=== PATIENT | female | born 1965 | race Caucasian/White ===

== ENCOUNTER 2019-06-20 09:35 | Outpatient (CLI) | payer BC, SELFPAY ==
--- NOTE | ~2019-06-20 | XR_ITS ---
XR abdomen/kub 1V DATE: 06/20/2019 10:00 INDICATION: Gross hematuria TECHNIQUE: AP projection, 2 views COMPARISON: 06/20/2019 CT abdomen pelvis examination; only the noncontrast portion of the examination is available at this time FINDINGS: Surgical clips, right upper quadrant, consistent with cholecystectomy. The psoas shadows are intact. No visceromegaly is evident. No significant abnormal calcification is n oted. No apparent urinary tract calcification. There is a moderate amount of fecal material in the rectum and colon. No bowel obstruction is evident . Mild rotatory levoscoliosis of the lumbar spine. IMPRESSION: Status post cholecystectomy Moderate amount of fecal material in the rectum and colon; no bowel obstruction. Reviewed, dictated and finalized at [facility]. Reviewed, dictated and finalized at location B. IMPRESSION: Status post cholecystectomy Moderate amount of fecal material in the rectum and colon; no bowel obstruction .
--- NOTE | ~2019-06-20 | CT_ITS ---
EXAMINATION: CT abdomen pelvis wo/w con DATE: 06/20/2019 10:36 INDICATION: Gross hematuria TECHNIQUE: Computed tomography (CT) of the abdomen and pelvis was performed without and subsequently with 130 cc Omnipaque 350 intravenous contrast. Automated exposure control and iterative reconstructi on technique were employed. Exam dose: 662.52 mGy-cm total exam DLP. COMPARISON: 06/20/2019 KUB FINDINGS: The lung bases are clear of infiltrate or consolidation. Normal heart size. No pericardial or pleural effusion. There are multiple calcified hepatic and splenic granulomas. There are surgical clips in the gallbladder fossa area. There is a tubular cystic appearing structure with possible filling defect which may be a dilated cystic duct remnant with possible stone. No bile duct or pancreatic duct dilatation. No pancreatic calcification or mass lesion is evident. Sp lenic size is normal. Normal morphology of the adrenal glands. The noncontrast examination reveals no evidence of urinary tract calculus or hydroureteronephrosis. There is an approximately 5 mm probable upper pole left renal cyst. No renal space occupying mass les ion is noted otherwise. Retroverted uterus. The adnexal areas and urinary bladder are unremarkable. The urinary bladder wall thickening or intraluminal filling defect of the urinary bladder is evident. Normal appendix. No bowel obstruction, bowel wall thickening, pneumatosis or intraperitoneal free air . There is a prominent amount of fecal material within the colon. There is atherosclerotic calcification of the abdominal aorta but no aneurysm. No intraperitoneal or retroperitoneal or pelvic mass lesion or adenopathy or ascites is detected. Included skeletal structures are unremarkable. IMPRESSION: No cause for gross hematuria is identified Probable 5 mm upper pole left renal cyst Retroverted uterus Status post cholecystectomy; probable dilated cystic duct remnant with possible stone Reviewed, dictated and finalized at [facility]. Reviewed, dictated and finalized at location B.
[2019-06-20 10:15] LABS: Estimated Glomerular Filt Rate > 60
== END 2019-06-20 09:36 | disposition home or self-care (01) ==
LOC: ANHIMG 09:47
PROVIDERS: Visit Provider Urology
DX: R31.0 Gross hematuria (principal); N28.1 Cyst of kidney, acquired; Z90.49 Acquired absence of other specified parts of digestive tract
CPT/HCPCS: 36415; 74018; 74178; Q9967

== ENCOUNTER → 2020-06-03 12:12 | Outpatient (CLI) | payer BC, SELFPAY ==
--- NOTE | ~2020-06-03 | MM_ITS ---
EXAMINATION: MM screening [facility] BI w ilda HISTORY: Screening TECHNIQUE: Craniocaudal and mediolateral oblique 3-D tomosynthesis images were obtained and synthetic 2-D images were generated. CAD analysis was submitted and interpreted. COMPARISON: Comparison to multiple prior studies sequentially, with oldest reviewed study dated 12/26. BREAST PARENCHYMAL COMPOSITION: The breasts are heterogeneously dense, which may obscure small masses . FINDINGS: There is no evidence of suspicious mass, calcification, or architectural distortion to sugg est malignancy in either breast. There has been no suspicious interval change. IMPRESSION: 1. No mammographic evidence of malignancy. 2. Recommend routine screening mammography in one year. BI-RADS Category 1: Negative Reviewed, dictated and finalized at location A. I TUBE BENDER
== END ==
PROVIDERS: Visit Provider Obstetrics & Gynecology
DX: Z12.31 Encounter for screening mammogram for malignant neoplasm of breast (principal)
CPT/HCPCS: 77063; 77067

== ENCOUNTER 2020-12-10 13:45 | Outpatient (CLI) | payer SELFPAY ==
--- NOTE | ~2020-12-10 | US_ITS ---
EXAMINATION: US pelvic complete w TV DATE: 12/10/2020 14:15 INDICATION: Pelvic pain. Fibroids. Comparison:No prior studies for comparison. TECHNIQUE: Multiple transabdominal and endovaginal sonographic images of the pelvis performed. FINDINGS: The uterus measures 6.5 x 3.6 x 4.1 cm. Uterus is retroverted and heterogeneous. There is a fibroid measuring 2.3 x 2 x 1.7 cm. The endometrial complex measures 6 mm. The right ovary measures 2 x 1 x 1.2 cm and the left ovary measures 1.6 x 1 x 1.2 cm. There are smal l follicles in each ovary. Normal doppler signal in both ovaries. There is no free fluid in the pelvis. There are no abnormal masses seen on either side. IMPRESSION: 1. Uterine fibroid measuring 2.3 cm maximum dimension. Otherwise, unremarkable pelvic ultrasound. Reviewed, dictated and finalized at location A.
== END 2020-12-10 13:46 ==
PROVIDERS: Visit Provider Obstetrics & Gynecology
DX: R10.2 Pelvic and perineal pain (principal); D25.9 Leiomyoma of uterus, unspecified
CPT/HCPCS: 76830; 76856

== ENCOUNTER → 2021-07-15 15:46 | Outpatient (CLI) | payer BC, SELFPAY ==
--- NOTE | ~2021-07-15 | MM_ITS ---
EXAMINATION: MM screening isreal BI w ilda HISTORY: Screening TECHNIQUE: Craniocaudal and mediolateral oblique 3-D tomosynthesis images were obtained and synthetic 2-D images were generated. CAD analysis was submitted and interpreted. COMPARISON: Comparison to multiple prior studies sequentially, with oldest reviewed study dated 12/26. BREAST PARENCHYMAL COMPOSITION: The breasts are heterogenously dense, which may obscure small masses FINDINGS: There is no evidence of suspicious mass, calcification, or architectural distortion to sugg est malignancy in either breast. There has been no suspicious interval change. IMPRESSION: 1. No mammographic evidence of malignancy. 2. Recommend routine screening mammography in one year. BI-RADS Category 1: Negative Reviewed, dictated and finalized at location A.
== END ==
PROVIDERS: Visit Provider Student in an Organized Health Care Education/Training Program
DX: Z12.31 Encounter for screening mammogram for malignant neoplasm of breast (principal)
CPT/HCPCS: 77063; 77067

== ENCOUNTER → 2022-10-28 12:01 | Outpatient (CLI) | payer BC, SELFPAY ==
--- NOTE | ~2022-10-28 | MM_ITS ---
EXAMINATION: MM screening [facility] BI w ilda HISTORY: Screening mammogram TECHNIQUE: Craniocaudal and mediolateral oblique 3-D tomosynthesis images were obtained and synthetic 2-D images were generated. CAD analysis was submitted and interpreted. COMPARISON: 07/15/2021, 06/03/2020, 12/30/2016 BREAST PARENCHYMAL COMPOSITION: There are scattered areas of fibroglandular density. FINDINGS: No suspicious mass, calcification, or architectural distortion are identified in either rema ast to suggest malignancy. There has been no suspicious interval change. IMPRESSION: 1. No mammographic evidence of malignancy. 2. Recommend routine screening mammography in one year. BI-RADS Category 1: Negative Reviewed, dictated and finalized at location A.
== END ==
PROVIDERS: PCP Nurse Practitioner Family; Visit Provider Student in an Organized Health Care Education/Training Program
DX: Z12.31 Encounter for screening mammogram for malignant neoplasm of breast (principal)
CPT/HCPCS: 77063; 77067

== ENCOUNTER 2023-01-03 14:56 | Outpatient (CLI) | payer BC, SELFPAY ==
--- NOTE | ~2023-01-03 | CT_ITS ---
EXAMINATION: CT brain wo con DATE: 01/03/2023 15:25 INDICATION: Headache. History of hydrocephalus. TECHNIQUE: Computed tomography (CT) of the head was performed without intravenous contrast. The mA wa s adjusted according to patient size. Iterative reconstruction technique was employed. Exam dose: 60 5.33 mGy-cm total exam DLP. COMPARISON: None FINDINGS: Right ventricular shunt catheter extends into left frontal horn of lateral ventricle. Moderately prominent dilatation of the third and lateral ventricles. Bilateral vertebral artery calcifications. Bilateral carotid siphon internal carotid artery calcific ations. 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 No subdural or epidural hematoma. No fracture or bone destruction of the cranial vault. The included paranasal sinuses and mastoid air cells are unremarkable. IMPRESSION: Right ventricular shunt, catheter tip in left frontal horn Moderately prominent dilatation of the third and lateral ventricles; no prior CT examinations for com parison Cerebral atherosclerosis and chronic small vessel ischemic changes of the cerebral white matter Reviewed, dictated and finalized at [facility]. Reviewed, dictated and finalized at location B. IMPRESSION: Right ventricular shunt, catheter tip in left frontal horn Moderately prominent dilatation of the third and lateral ventricles; no prior C T examinations for comparison Cerebral atherosclerosis and chronic small vessel ischemic changes of the cereb ral white matter
== END 2023-01-03 14:57 | disposition home or self-care (01) ==
PROVIDERS: PCP Nurse Practitioner Family; Visit Provider Student in an Organized Health Care Education/Training Program
DX: G91.9 Hydrocephalus, unspecified (principal); I67.2 Cerebral atherosclerosis; I67.82 Cerebral ischemia; Z98.2 Presence of cerebrospinal fluid drainage device
CPT/HCPCS: 70450

== ENCOUNTER 2024-01-10 14:12 | Outpatient (CLI) | payer BC, SELFPAY ==
--- NOTE | ~2024-01-10 | MM_ITS ---
EXAMINATION: MM screening isreal BI w ilda HISTORY: Screening TECHNIQUE: Craniocaudal and mediolateral oblique 3-D tomosynthesis images were obtained and synthetic 2-D images were generated. CAD analysis was submitted and interpreted. COMPARISON: Comparison to multiple prior studies sequentially, with oldest reviewed study dated 02/02. BREAST PARENCHYMAL COMPOSITION: Not dense: There are scattered areas of fibroglandular density. FINDINGS: There is no evidence of suspicious mass, calcification, or architectural distortion to sugg est malignancy in either breast. There has been no suspicious interval change. IMPRESSION: 1. No mammographic evidence of malignancy. 2. Recommend routine screening mammography in one year. BI-RADS Category 1: Negative Reviewed, dictated and finalized at location B.
== END 2024-01-10 14:13 | disposition home or self-care (01) ==
LOC: MICIMG 14:15
PROVIDERS: PCP Nurse Practitioner Family; Visit Provider Student in an Organized Health Care Education/Training Program
DX: Z12.31 Encounter for screening mammogram for malignant neoplasm of breast (principal)
CPT/HCPCS: 77063; 77067

== ENCOUNTER 2024-02-10 13:52 | Outpatient (CLI) | payer BC, SELFPAY ==
--- NOTE | ~2024-02-10 | XR_ITS ---
Cervical Spine: AP, lateral, open-mouth views Clinical History: Pain Findings: There is mild reversal normal cervical lordosis. There is anterior and interbody fusion fro m C5 to C6. There is moderate to advanced degenerative disc narrowing at C6-C7. There is mild to mode rate degenerative change in the upper cervical spine. There is moderate to advanced facet arthropathy throughout the cervical spine. No instability evident on flexion or extension. No prevertebral soft tissue swelling. Impression: Status post C5-C6 anterior and interbody fusion. No instability evident on flexion or extension. Moderate to advanced degenerative spondylosis, as above. Reviewed, dictated and finalized at location M. D LEAD Impression: Status post C5-C6 anterior and interbody fusion. No instability evident on flex ion or extension. Moderate to advanced degenerative spondylosis, as above.
== END 2024-02-10 13:53 | disposition home or self-care (01) ==
LOC: MICIMG 13:54
PROVIDERS: PCP Nurse Practitioner Family; Visit Provider Anesthesiology Pain Medicine
DX: M47.892 Other spondylosis, cervical region (principal); Z98.1 Arthrodesis status
CPT/HCPCS: 72052

== ENCOUNTER 2024-05-15 00:30 | Day surgery (SDC) | payer BC, MEDICARE, SELFPAY ==
[2024-05-07 12:03] VITALS: BMI 19.8
--- OUTSIDE RECORDS SUMMARY | 2024-05-15 00:36 | XMS_ITS | Patient Health Record ---
Author Organization [facility] Address [address] [place] [id number] Care Team Providers Care Electrical Maintenance Engineer Name Role Phone [place] Precious PATTERSON Primary Care Provider Rebecca vailaDr. John Jay Unavailable [phone] [employer], Provider Unavailable Unavailab le Allergies No Known Allergies Reason For Referral No Information Medications Medication SIG (Take, Route, Frequency, Duration) Notes Start Date End Date Status metFORMIN HCl 500 MG 1 tab(s) orally 2 times a day for 30 day(s) Active DULoxetine HCl 40 MG 1 CAP(S) ORALLY ONCE A DAY *Please review and pick correct strength-formulation from Clavisterspan options. If intended option is not shown, discontinue and re-order from Quick Search* Active CALCIUM 600+D 600 mg-5 mcg 1 tab(s) orally 3 times a day for 30 day(s) Active ZINC 140 mg (as elemental zinc 50 mg) 1 tab(s) orally once a day for 30 day(s) Active METFORMIN 500 mg 1 tab(s) orally 2 times a day for 30 day(s) Active Calcium 600 + D 600 MG-5 MCG 1 TAB(S) ORALLY 3 TIMES A DAY for 30 DAY(S) *Please review and pick correct strength-formulation from Clavisterspan options. If intended option is not shown, discontinue and re-order from Quick Search* Active DULOXETINE 40 mg 1 cap(s) orally once a day Active Zinc 50 MG 1 tab(s) orally once a day for 30 day(s) Active Social History Tobacco Use: Social History Observation Description Date Details (start date - stop date) Current Smoker NA - NA Smoking Smart Form: Question Answer Notes Are you a: current smoker Problems Problem Type SNOMED Code ICD Code Onset Dates Problem Status W/U Status Risk Notes Problem Chronic migraine without aura, non-refractory (disorder) (512292210141381) Migraine without aura, not intractable, without status migrainosus (G43.009) Active confirmed Problem Migraine with aura (3467265) Migraine with aura, not intractable, without status migrainosus (G43.109) Active confirmed Problem Chronic migraine without aura, non-intractable (872419392827786) Chronic migraine without aura, not intractable, without status migrainosus (G43.709) Active confirmed Problem Chronic tension-type headache (338667921) Chronic tension-type headache, intractable (G44.221) Active confirmed Problem Hydrocephalus (754472394) Hydrocephalus, unspecified (G91.9) Active confirmed Vital Signs Blood pressure diastolic 81 mm Hg 05/25/2023 Oximetry 98 % 05/25/2023 Height 68 in 05/25/2023 Blood pressure systolic 119 mm Hg 05/25/2023 Weight 142 lbs 05/25/2023 BMI 21.59 kg/m2 05/25/2023 Encounters Encounter Location Date Provider Diagnosis [address] [address] 09/17/[address] [facility] [address] [place] [address] 05/25/2023 John Naidu Chronic tension-type headache, intractable G44.221 and Hydrocephalus, unspecified G91.[address] [address] 05/16/2023 John Naidu [address] [address] 05/18/2023 John Naidu Assessments Encounter Date Diagnosis (ICD Code) Assessment Notes Treatment Notes Treatment Clinical Notes Section Notes 05/25/2023 Chronic tension-type headache, intractable (ICD-10 - G44.221) Assess effect of botulinum toxin over the next 3 months 05/25/2023 Hydrocephalus, unspecified (ICD-10 - G91.9) Follow with NS Plan Of Treatment No Information Insurance Providers Payer Name Payer Address Payer Phone Subscriber Number Group Number Insured Name Patient Relationship to Insured Coverage Start Date Coverage End Date [facility] [address] [place] [address] [id number] Js Roman Self - patient is the insured Medical (General) History Medical History History ICD Code Hydrocephalus Cervical DDD Type II diabetes mellitus RLS Surgical History Surgery Date(Month/Year) S/p MANAGER CASH shunt S/p cervical spinal fusion
--- OUTSIDE RECORDS SUMMARY | 2024-05-15 00:36 | XMS_ITS | Data Portability ---
Author Organization [facility], [place], [place] Address [address] [place] [address] Assessment No assessment recorded. Plan of Treatment Reminders Order Date Submit Date Provider Last Modified By Organization Details Last Modified Time Details Appointments None recorded. Lab None recorded. Referral None recorded. Procedures None recorded. Surgeries None recorded. Imaging None recorded. Medication Orders Effexor XR 75 mg capsule,e xtended release 2019 020 INTERFACE [id number], [address] [place], [address], 0 11:36:35 Patient TargetsNo targets recorded. Patient InstructionsNo instructions recorded. Reason for Referral None Reported. Problems Name Problem SNOMED Code Status Onset Date Resolution Date Notes Provider Name and Address Organization Details Recorded Time Blood leukocyte number above reference range 801298746 Active 2019 Elevated white blood cell count, unspecifi ed;Record ed Elsewhere : No Locati on: [facility] So urce: EHR Chron ic: N Practic e ID: 0001 Bill able Time: 10:45:00 AM Not Available [facility] 0 21:50:34 Family planning surveilla nce Active 2012 Contracep tive surveilla nce, unspecifi ed;Record ed Elsewhere : No Locati on: [facility] So urce: EHR Chron ic: N Practic e ID: 0001 Bill able Time: 02:15:00 PM Not Available [facility] 0 21:50:34 Postmenop ausal bleeding 92897452 Active 2018 Postmenop ausal bleeding; Recorded Elsewhere : No Locati on: [facility] So urce: EHR Chron ic: N Practic e ID: 0001 Bill able Time: 11:30:00 AM Not Available [facility] 0 21:50:34 Removal of intrauter ine device Active 2017 Encounter for removal of intrauter ine contracep tive device;Re corded Elsewhere : No Locati on: [facility] So urce: EHR Chron ic: N Practic e ID: 0001 Bill able Time: 10:30:00 AM Not Available [facility] 0 21:50:34 Evaluatio n finding Active 2017 Hematuria , unspecifi ed;Record ed Elsewhere : No Locati on: [facility] So urce: EHR Chron ic: N Practic e ID: 0001 Bill able Time: 02:30:00 PM Not Available [facility] 0 21:50:34 Screening for malignant neoplasm of rectum Active 2017 Encounter for screening for malignant neoplasm of rectum;Re corded Elsewhere : No Locati on: [facility] So urce: EHR Chron ic: N Practic e ID: 0001 Bill able Time: 02:30:00 PM Not Available [facility] 0 21:50:34 Dysuria 81227711 Active 2012 Dysuria;R ecorded Elsewhere : No Locati on: [facility] So urce: EHR Chron ic: N Practic e ID: 0001 Bill able Time: 02:15:00 PM Not Available [facility] 0 21:50:34 Specializ ed medical examinati on Active 2011 Gynecolog ical Examinati on;Record ed Elsewhere : No Locati on: [facility] So urce: EHR Chron ic: N Practic e ID: 0001 Bill able Time: 11:00:00 AM Not Available [facility] 0 21:50:34 Syphilis test finding 839954204 Active 2019 Encounter for screening for infection w/ a predomina ntly sexual mode of transmiss ion;Recor ded Elsewhere : No Locati on: [facility] So urce: EHR Chron ic: N Practic e ID: 0001 Bill able Time: 10:45:00 AM Not Available [facility] 0 21:50:[address] Concept Active 2015 Encntr for supervisor labor 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 exam (general) (routine) w/o abn findings; Recorded Elsewhere : No Locati on: [facility] So urce: EHR Chron ic: N Practic e ID: 0001 Bill able Time: 11:00:00 AM Not Available [facility] 0 21:50:35 Screening for malignant neoplasm of cervix Active 2015 Encounter for screening for malignant neoplasm of cervix;Re corded Elsewhere : No Locati on: [facility] So urce: EHR Chron ic: N Practic e ID: 0001 Bill able Time: 11:00:00 AM Not Available [facility] 0 21:50:[address] Concept Active 2017 Encntr for general adult medical exam w/o abnormal findings; Recorded Elsewhere : No Locati on: [facility] So urce: EHR Chron ic: N Practic e ID: 0001 Bill able Time: 02:30:00 PM Not Available [facility] 0 21:50:35 test negative 645601061 Active 2012 examinati on or test, negative result;Re corded Elsewhere : No Locati on: [facility] So urce: EHR Chron ic: N Practic e ID: 0001 Bill able Time: 10:30:00 AM Not Available [facility] 0 21:50:35 Adult health examinati on Active 2013 ROUTINE MEDICAL EXAM;Rafael rded Elsewhere : No Locati on: [facility] So urce: EHR Chron ic: N Practic e ID: 0001 Bill able Time: 11:15:00 AM Not Available [facility] 0 21:50:35 Pelvic and perineal pain 188564017 Active 2018 Pelvic pain;Rafael rded Elsewhere : No Locati on: [facility] So urce: EHR Chron ic: N Practic e ID: 0001 Bill able Time: 04:30:00 PM Not Available [facility] 0 21:50:35 Glycosuri a 26046273 Active 2016 Glycosuri a;Recorde d Elsewhere : No Locati on: [facility] So urce: EHR Chron ic: N Practic e ID: 0001 Bill able Time: 01:00:00 PM Not Available [facility] 0 21:50:35 Urinary tract infectiou s disease 84841140 Active 2012 Urinary Tract Infection ;Recorded Elsewhere : No Locati on: [facility] So urce: EHR Chron ic: N Practic e ID: 0001 Bill able Time: 02:15:00 PM Not Available [facility] 0 21:50:35 Acute vaginitis 55887924 Active 2019 Acute vaginitis ;Recorded Elsewhere : No Locati on: [facility] So urce: EHR Chron ic: N Practic e ID: 0001 Bill able Time: 10:45:00 AM Not Available [facility] 0 21:50:35 Insertion of intrauter ine contracep tive device Active 2012 INSERTION OF IUD;Recor ded Elsewhere : No Locati on: [facility] So urce: EHR Chron ic: N Practic e ID: 0001 Bill able Time: 10:30:00 AM Not Available [facility] 0 21:50:36 Asymptoma tic microscop ic hematuria 56862507013 625891 Active 2019 Asymptoma tic microscop ic hematuria ;Recorded Elsewhere : No Locati on: [facility] So urce: EHR Chron ic: N Practic e ID: 0001 Bill able Time: 10:45:00 AM Not Available [facility] 0 21:50:36 Vaginitis and vulvovagi nitis Active 2010 Vaginitis and vulvovagi nitis, unspecifi ed;Practi ce ID: 0001 Not Available [facility] 0 21:50:[address] Concept Active 2016 Encounter for general adult medical exam w abnormal findings; Practice ID: 0001 Not Available [facility] 0 21:50:38 Problem Notes None recorded. Procedures Surgical History Date Name Laterality Status Provider Name and Address Organization Details Recorded Time 018 Date of Last Pap Smear completed [facility] 09/06/2019 11:23:38 002 section completed [facility] 09/06/2019 00:57:28 Cholecystectomy completed Blanca Ge [facility] 09/06/2019 00:57:36 cervical arthrodesis completed [facility] 09/06/2019 00:57:49 Imaging Results None recorded. Procedure Notes None recorded. Medical Equipment None Reported. Allergies Allergen ID Allergen Name Allergen Category Reaction Reaction Severity Criticality Documentation Date Start Date Code Code System Note Provider Name and Address Organization Details Recorded Time 849 Monistat medicatio n Not available Not available Not available 09/06/2019 35894 9 RxNorm Blanca piper leobardo [facility] 0 00:56:14 Medications Name Sig Start Date Stop Date Status Note LastModified by Organization Details LastModified Time cyclobenz aprine 10 mg tablet 09/05 completed Not Available Not Available Not Available Effexor XR 75 mg capsule,e xtended release Take 1 capsule every day by oral route. 2019 active Not Available Not Available Not Avai lable glyburide 2.5 mg tablet take 1 tablet by oral route every day before breakfas t active Prescrib ed Elsewher e: Yes Loca tion: [facility] M odify By: vinicius english DateTime : 12/21/19 17 01:00:00 PM Not Available Not Available Not Available metronida zole 0.75 % (37.5 mg/5 gram) vaginal gel insert 1 applicat orful by vaginal route for 5 nights at bedtime 09/05 completed Not Available Not Available Not Available sulfameth oxazole 800 mg-trimet hoprim 160 mg tablet 09/05 completed Not Available Not Available Not Available hydrocort isone 2.5 % lotion 09/05 completed Not Available Not Available Not Available acyclovir 5 % topical ointment 09/05 completed Not Available Not Available Not Available oxybutyni n chloride ER 5 mg tablet,ex tended release 24 hr active Not Available Not Available Not Available gabapenti n 300 mg capsule active Not Available Not Available Not Available nitrofura ntoin monohydra te/macroc rystals 100 mg capsule 09/05 completed Not Available Not Available Not Available glyburide active Not Available Not Sandy ilable Not Available Metamucil active Not Available Not Sandy ilable Not Available Chantix 0.5 mg tablet take 1 tablet by oral route 2 times every day for 3 days with a glass of water after meals active Prescrib ed Elsew e: Yes [facility] By: patria english DateTime : 06/23/19 12 11:00:00 AM Not Available Not Available Not Available Chantix 09/05 completed Not Available Not Available Not Available Body, Hair, Skin and Nails active Not Available Not Available Not Available Chantix Continuin g Month Box 1 mg tablet 09/05 completed Not Available Not Available Not Available Shingrix (PF) 50 mcg/0.5 mL intramusc ular suspensio n, kit 09/05 completed Not Available Not Available Not Available FreeStyle Catrachito 14 Day [place] 09/05 completed Not Available Not Available Not Available FreeStyle Catrachito 14 Day Sensor kit 09/05 completed Not Available Not Available Not Available Afluria Qd 2018- (36 mos up)(PF)60 mcg (15 mcg x4)/0.5 mL IM syringe 09/05 completed Not Available Not Available Not Available Vitals Date Recorded Body height Body mass index (BMI) Body weight Systolic blood pressure Diastolic blood pressure Provider Name and Address Organization Details Last Updated DateTime 09/06/2019 172.72 cm 19.9 kg/m2 33419.6 g 113 mm[Hg] 76 mm[Hg] Blanca Ge [facility] 0 11:21:53 Social History Question Answer Notes LastModified by Organizat ion Details LastModified Time Tobacco Smoking Status Current Every Day Smoker Not Available [facility] 02/05/2020 03:28:11 How Much Tobacco Do You Smoke? 0.5 PPD [id number] Information not available 02/05/2020 Sex: Unknown Functional Status None recorded. Mental Status None recorded. Family History Relationship Description Onset Age of this Age Resolved Age Notes LastModified by Organization Details LastModified Time Maternal Aunt Tuberculosis vasquez jj Not available 09/06/2019 00:56:56 Brother Family history of malignant tumor of hypopharynx benjamin jj Not available 09/06/2019 00:57:08 Notes:Brother: throat cancer Maternal aunt: Tuberculosis Medical History Condition Response Diabetes Y Gynecological History Statement/Question Response Date of Last Pap Smear 01/31/2018 Current Control Method Menopause LMP Unknown Obstetrics History GPAL:G 2 P 2 0 0 0 Type Value Full Term 2 Total 2 Past Encounters Encounter ID Performer Location Encounter Start Date Encounter Closed Date Diagnosis/Indication Diagnosis SNOMED-CT Code Diagnosis ICD10 Code Diagnosis Note [id number] [place] [address] [address] 09/06/2019 10:56:58 09/06/2019 12:40:23 Menopausal symptom 44771550 N95.1 We discussed options including HRT, OTC supplement s, or Effexor or Paxil. Since she has more mood symptoms and no vasomotor symptoms, we decided to try Effexor. She will return in about a month for med check and annual exam since she's overdue Reduced libido 8172115 R 68.82 May consider adding testostero ne if this is still an issue after being on Effexor for a while Health Concerns Section Related Observation LastModified by Organization Detai ls LastModified Time None Recorded Concern Status LastModified by Organization Details LastModified Time None Recorded Advance Directives Directive None Recorded Payers Encounter Date Sequence Insurance Name Policy Number Policy Spencer Covered Member ID Spencer Member ID Guarantor Name 09/06/2019 1 [facility]: (PPO) [id number] Js Roman [id number] Js Roman Notes Date Note Type Note Provider Name and Address Organization Details Recorded Time 09/06/2019 text/html MenopauseReporte d bypatient.Onset/Timing :1-2 years Quality:sleep issues; mood changes; affects quality of life Severity:severe Duration:prolonged Context:no menses for over 1 year Alleviating Factors:none Associated Symptoms:no abdominal pain; no pelvic pain; no abnormal bleeding; no vaginal discharge; no dysuria; no dispareunia; no changes in bowel function; no fever; no vaginal dryness; no depression; no skin changes; no changes in urination;irritability ;loss of libido S [facility] 09/06/2019 11:41:19 OBGyn Episode Ob Episode Information Episode Created Date Number of Fetuses Patient Bloodtype Patient rh Status Prepregnancy Weight lbs Domestic Partner Domestic Partner Phone Father Name Drug Safety Data Management Specialist Status 09/06/19 20 1 CLOSED Fetus Data First Name Last Name Admitted to NICU Weight (g) Sex Living Outcome Pediatric Complications Fetus ID Race Codes Race Delivery Type 4025.62 9 M Full Term 1976 Vaginal Delivery Griffin Calculation Initial Griffin Date Initial Exam Date Initial Exam Provider Initial Ultrasound Date Last Menstrual Period Date Ultra Sound Weeks Gestation 0 Eighteen To Twenty Week Griffin Update Ultra Sound Date Fundal Height At Umbil Quickening Date Ultra Sound Latest Weeks Gestation Final Griffin Confirmed By Final Griffin Confirmed Date Final Griffin Date Ultra Sound Latest Days Gestation 0 0 Menstrual History Last Menstrual Date Menses Monthly On Bcp Conception Prior Menses Frequency Hcg Plus Date Menarche Onset Age Delivery Information Delivery Date Delivery Type Labor Anesthesia Weeks Gestation Incision Type Labor Labor Length Hrs Delivered By Post Complications Tubal Sterilization Discharge Date Comments 8 Discharge Information Feeding Method Contraceptive Method Maternal HG B and HCT Levels Ob Episode Information Episode Created Date Number of Fetuses Patient Bloodtype Patient rh Status Prepregnancy Weight lbs Domestic Partner Domestic Partner Phone Father Name Drug Safety Data Management Specialist Status 09/06/19 20 1 CLOSED Fetus Data First Name Last Name Admitted to NICU Weight (g) Sex Living Outcome Pediatric Complications Fetus ID Race Codes Race Delivery Type 3628.73 6 M Full Term 1975 Primary Griffin Calculation Initial Griffin Date Initial Exam Date Initial Exam Provider Initial Ultrasound Date Last Menstrual Period Date Ultra Sound Weeks Gestation 0 Eighteen To Twenty Week Griffin Update Ultra Sound Date Fundal Height At Umbil Quickening Date Ultra Sound Latest Weeks Gestation Final Griffin Confirmed By Final Griffin Confirmed Date Final Griffin Date Ultra Sound Latest Days Gestation 0 0 Menstrual History Last Menstrual Date Menses Monthly On Bcp Conception Prior Menses Frequency Hcg Plus Date Menarche Onset Age Delivery Information Delivery Date Delivery Type Labor Anesthesia Weeks Gestation Incision Type Labor Labor Length Hrs Delivered By Post Complications Tubal Sterilization Discharge Date Comments 2 breech, postdeliv tenzin bleeding Discharge Information Feeding Method Contraceptive Method Maternal HG B and HCT Levels
--- OUTSIDE RECORDS SUMMARY | 2024-05-15 00:36 | XMS_ITS | Data Portability ---
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 Patient to get in with dentist. States she is going to try sedation dentistry. Will try [facility] center in [place]. Not available 11/04/2022 12:30:15 02/08/2023 02/08/2023 Dr. 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 Patient to get in with dentist. States she is going to try sedation dentistry. [facility] headache office did not help. Referred back to neurosurgeon. Not available 02/08/2023 11:57:19 04/28/2023 04/28/2023 This note is dictated and transcribed by [employer] Direct Software. Vp Global variances may occur. Despite proofreading, typographical errors may occur. Occasional wrong-word or '[id number]' substitutions may have occurred due to the inherent limitations of voice recording. Read the chart carefully and recognize, using context, where substitutions have occurred. [email or web address] Not available 04/28/2023 10:52:20 Plan of Treatment Reminders Order Date Submit Date Provider Last Modified By Organization Details Last Modified Time Details Appointments None recorded. Lab BMP, serum or plasma [email or web address] [facility] (Lab), [address] [place] [address] , [place], [address], 3 14:45:12 HbA1c (hemoglobin A1c), blood [address] [facility] (Lab), [address], [place], [address], 3 18:47:57 lipid panel, serum [email or web address] [facility] (Lab), [address], [place], [address], 3 14:45:13 Referral roller print tender referral - pain in both feet. +diabetes. 2022 023 [email or web address] 3 Edward Rico DPM, [address] [facility], [place], [address], 3 08:41:54 headache specialist - chronic headache. 2022 023 [email or web address] 3 [facility], [address], [place], [address], 3 08:44:05 Procedures None recorded. Surgeries None recorded. Imaging None recorded. Medication Orders topiramate 50 mg tablet [id number], [address] [place], [address], 3 11:32:11 atorvastati n 40 mg tablet 2022 023 [id number], [address] [place], [address], 3 11:41:37 Medrol (Teddy) 4 mg tablets in a dose pack [address]/[facility][id number], [address] [place], [address], 11:25:48 Patient TargetsNo targets recorded. Patient Instructions Encounter Date Encounter Id Patient Instructions Last Modified By Organization Details Last Modified Time 11/04/2022 [id number] Due in january for followup. Not available 11/04/2022 12:31:14 12/14/2022 [id number] FU in january as previously scheduled. Not available 12/14/2022 12:17:26 02/08/2023 [id number] Fu in 4-6 mo, sooner as needed. Hyperlipidemia, herpes, headache, type II diabetes, anxiety, fatigue, neck pain, foot pain. Not available 02/08/2023 11:51:16 03/22/2023 [id number] Fu prn 03/2023 p t aware of jerome departure. Not available 03/24/2023 07:42:48 04/28/2023 [id number] [facility] foot care [facility] Not available 04/28/2023 10:53:13 diabetic neuropathy education shelly Not available 04/28/2023 10:53:13 Reason for Referral Dry Cleaning Supervisor Referral for Foot pain pain in both feet. +diabetes. Referring Physician: Precious Cano, Family Medicine, Encounter Date: 11/04/2022 Headache Specialist for Head ache chronic headache. Referring Physician: Precious Cano Family Medicine, Encounter Date: 11/04/2022 Results Created Date Observation Date Name Description Value Unit Range Abnormal Flag Note LastModifiedBy Organization Detail LastModifiedTime 02/09/2002/08/2023 HEMOG LOBIN A1C HA1C 8.4 % 4.0-6. 0 high Diabe gen Scree fallon Crite emily: <5.7% Consi stent with absen ce of diabe gen 5.7-6 .4% Consi stent with incre ased risk for diabe gen (pred iabet es) >OR=6 .5% Consi stent with diabe gen REFER ENCE: Diabe gen Care 2016, 39(Castellanos ppl.1 ):s13 -s22 Not Available [facility] ([facility]) [address] [place], [address], 02/08/2023 12:51:58 02/09/2002/08/2023 LIPID PANEL cholesterol 131 mg/dL 140-19 9 low NIH JARROD NSUS RECOM MENDA TION FOR NAWAF STERO L: ADULT CHILD LOW RISK: <200 <170 BORDE RLINE : <200- 239 ----- HIGH RISK: >240 >200 Not Available [facility] (Lab) [address] [place], [address], 02/08/2023 14:55:25 02/09/20 23 02/08/2023 LIPID PANEL triglyceride s 172 mg/dL 0-150 high NIH JARROD NSUS REPOR T RECOM MENDA TION FOR TRIGL YCERI JOCELINE: ADULT CHILD LOW RISK: <150 ----- BODER LINE: 150-1 99 ----- HIGH RISK: >200 ----- Not Available [facility] (Lab) [address] [place], [address], 02/08/2023 14:55:25 02/09/20 23 02/08/2023 LIPID PANEL HDL cholesterol 40 mg/dL 40- Not Available [facility] (Lab) [address] [place], [address], 02/08/2023 14:55:25 02/09/20 23 02/08/2023 LIPID PANEL LDL cholesterol, calculated 57 mg/dL 0-130 NIH JARROD NSUS REPOR T RECOM MENDA TIONS FOR LDL: ADULT CHILD LOW RISK <130 <110 (OPTI MAL LDL) <100 ----- BORDE RLINE : 130-1 59 ----- HIGH RISK: >160 >130 A TRIGL YCERI DE RESUL T >400 INVAL IDATE S THE CALCU LATIO N FOR LDL FRACT IONAT ION - THE LDL RESUL T WILL NOT BE REPOR SONIA. Not Available [facility] (Lab) [address] [place], [address], 02/08/2023 14:55:25 02/09/20 23 02/08/2023 BASIC METAB OLIC PANEL sodium 142 mmol/ L 137-14 5 Not Available [facility] (Lab) [address] [place], [address], 02/08/2023 14:55:47 02/09/20 23 02/08/2023 BASIC METAB OLIC PANEL potassium 4.3 mmol/ L 3.5-5. 1 Not Available [facility] (Lab) [address] [place], [address], 02/08/2023 14:55:47 02/09/20 23 02/08/2023 BASIC METAB OLIC PANEL chloride 106 mmol/ L 98-107 Not Available [facility] (Lab) [address] [place], [address], 02/08/2023 14:55:47 02/09/20 23 02/08/2023 BASIC METAB OLIC PANEL carbon dioxide 32 mmol/ L 22-30 high Not Available [facility] (Lab) [address] [place], [address], 02/08/2023 14:55:47 02/09/20 23 02/08/2023 BASIC METAB OLIC PANEL anion gap 8.3 mmol/ L 14-22 low Not Available [facility] (Lab) [address] [place], [address], 02/08/2023 14:55:47 02/09/20 23 02/08/2023 BASIC METAB OLIC PANEL glucose 169 mg/dL 70-99 high Not Available [facility] (Lab) [address] [place], [address], 02/08/2023 14:55:47 02/09/20 23 02/08/2023 BASIC METAB OLIC PANEL BUN 9 mg/dL 8-19 Not Available [facility] (Lab) [address] [place], [address], 02/08/2023 14:55:47 11/0702/08/2023 BASIC METAB OLIC PANEL creatinine 0.58 mg/dL 0.66-1 .25 low Not Available [facility] (Lab) [address] [place], [address], 02/08/2023 14:55:47 02/09/20 23 02/08/2023 BASIC METAB OLIC PANEL GFR >60 Refer ence Range : Dixie ge GFR Healt hy Adult : >60 mL/mi n/1.7 3 m2 Chron ic Kidne y Disea se: 15-60 mL/mi n/1.7 3 m2 Kidne y Failu re: <15/m L/min /1.73 m2 www.n iddk. nih.g ov The MDRD study equat ion has not been valid ated in child rod <18 years of age; pregn ant women ; the elder ly >85 years of age; or in some racia l or ethni c subgr oups, such as Hispa nics. Outsi de the valid ated jian eters , estim ated GFR is less accur ate, requi ring clini elvis judgm ent on a case- by-ca se basis . Clini elvis inter preta tion for other races and ages must be made by the clini sury. The MDRD study equat ion has not been valid ated for the evalu ation of serum creat inine relat ed to nutri francoise l statu s or medic ation usage . For perso ns <18 years of age, a pedia tric GFR calcu lator is avail able on the [facility] websi te: https ://toni w.kimber taylor.o rg/pr jooness didieral s/kdo qi/gf r_cal culat or Not Available [facility] (Lab) [address] [place], [address], 02/08/2023 14:55:47 02/09/2002/08/2023 BASIC METAB OLIC PANEL calcium 9.7 mg/dL 8.4-10 .2 Not Available [facility] (Lab) [address] [place], [address], 02/08/2023 14:55:47 10/27/19 23 XR, cervi elvis spine , 4 or 5 view [facility] [address] [facility] [address], [place] [address] Patien t Name: JS MEJIA Access ion #: [id number] Sex: F : 1964 3 Dictat ed By: Francisco Sheikh Attend ing Physic masha: VICTOR MANUEL CANO Orderi ng Physic masha: VICTOR MANUEL CANO Exam Date: 2022 12:23 PM Exam Name: XR C SPINE 4-5V Admitt ing Diagno sis(es ): Compar ashli: None Clinic al histor y: Pain Findin gs: There are endpla te osteop hytes noted, along the verteb ral bodies consis tent with degene rative joint diseas e. No acute fractu re seen. If there is concer n, consid er MRI No focal osseou s lesion s are demons trated . Fusion is seen anteri meghan at the level of C5 and C6 with disc prosth eses noted. No soft tissue mass Impres catrina: 1. Multil evel degene rative change s at the C5 and C6 verteb ral bodies . Electr onical ly Signed by: Francisco Sheikh at 2022 14:42: 34 PM Page 1 [facility] (Imaging) [address] [place], [address], 10/29/2022 15:23:59 10/29/19 23 10/28/2022 MAMMO , scree fallon, bilat eral No observ ation record ed. [facility] [address], [place], [address], 10/28/2022 17:07:31 01/04/20 23 01/03/2023 CT, brain , w/o contr ast No observ ation record ed. [facility] [address], [place], [address], 01/05/2023 07:48:47 Result Notes None recorded. Problems Name Problem SNOMED Code Status Onset Date Resolution Date Notes Provider Name and Address Organization Details Recorded Time Herpes labialis 5340166 Active 2021 Not Available [facility] 3 02:48:17 Type 2 diabetes mellitus without complication 614994211 Active 2021 Not Available [facility] 3 02:48:18 Dizziness 677083213 Active 2021 Not Available [facility] 3 02:48:18 Anxiety 62258186 Active 2021 Not Available [facility] 3 02:48:18 Hyperlipidemi a 05006411 Active 2021 Not Available [facility] 3 02:48:18 Urgent desire to urinate 10241846 Active 2021 Not Available [facility] 3 02:48:18 Overactive urinary bladder 534527164 Active 2021 Not Available [facility] 3 02:48:18 Fatigue 15766958 Active 2021 Not Available [facility] 3 02:48:18 Headache 36724755 Active 2022 Precious Cano NP [address], [address] [facility], [place], [address] , [employer] 3 10:42:21 Leukocytosis 087453900 Active 2022 Precious Cano NP [address], [address], [place], [address] , [employer] 3 11:53:34 Neck pain 74930198 Active 2022 Precious Cano NP [address], [address], [place], [address] , [employer] 3 17:38:56 Foot pain 05850399 Active 2022 Precious Cano NP [address], [address], [place], [address] , [employer] 3 11:47:39 Upper respiratory infection 79780392 Active 2022 Precious Cano NP [address], [address], [place], [address] , [facility] 3 11:45:57 Nausea and vomiting 67835469 Active 2022 Precious Cano NP [address], [address], [place], [address] , [facility] [email or web address] [facility] 3 15:06:20 Environmental allergy 749610078 Active 2023 Josselyn booth, [facility] [email or web address] [facility] 4 10:14:42 Diabetes mellitus 21922952 Active 2023 Edward Rico DPM [address], [address], [place], [address] , [facility] [email or web address] [facility] 4 10:49:37 Neuralgia 18272312 Active 2023 Edward Rico DPM [address], [address], [place], [address] , [facility] [email or web address] [facility] 4 10:49:59 Hammer toe 088557956 Active 2023 Edward Rico DPM [address], [place], [address] , [facility] [email or web address] [facility] 4 10:52:30 Problem Notes None recorded. Procedures Surgical History Date Name Laterality Status Provider Name and Address Organization Details Recorded Time 10/29/19 23 Date of Last Mammogram completed Precious Cano NP [address], [address], [place], [address], [facility] [email or web address] [facility] 10/28/2022 17:07:22 10/29/19 23 Most Recent Mammogram completed Precious Tijerina RN [facility] [email or web address] [facility] 11/04/2022 11:32:54 04/04/19 22 Shunt supr v/c p-art 1 lung completed Not Available [facility] 06/02/2022 02:40:10 cervical arthrodesis completed Not Available [facility] 06/02/2022 02:40:10 Unlisted procedure shoulder completed Not Available [facility] 06/02/2022 02:40:10 Foot Surgery completed Not Available [facility] 06/02/2022 02:40:10 Cholecystectomy completed Not Available [facility] 06/02/2022 02:40:10 Imaging Results Imaging Date Name Status LastModified by Organiz ation Details LastModified Time 10/26/2022 XR, cervical spine, 4 or 5 view completed [email or web address] (Imaging) [address] [facility], [place], [address], 10/29/2022 15:23:59 10/28/2022 MAMMO, screening, bilateral completed [email or web address] [facility] [address], [place], [address], 10/28/2022 17:07:31 01/03/2023 CT, brain, w/o contrast completed [email or web address] [facility] [address] [facility] [address], [place], [address], 01/05/2023 07:48:47 Procedure Notes None recorded. Medical Equipment None Reported. Allergies Allergen ID Allergen Name Allergen Category Reaction Reaction Severity Criticality Documentation Date Start Date Code Code System Note Provider Name and Address Organization Details Recorded Time 4508 miconazol e nitrate medicatio n Not available Not available Not available 06/02/2022 56054 RxNorm Not Available [facility] 02:58:50 Medications Name Sig Start Date Stop Date Status Note LastModified by Organization Details LastModified Time cyclobenzap rine 10 mg tablet active Not Available Not Available Not Available amoxicillin 500 mg capsule TAKE 1 CAPSULE BY MOUTH EVERY 6 HOURS UNTIL GONE 11/06 completed Not Available Not Available Not Available atorvastati n 40 mg tablet TAKE 1 TABLET BY MOUTH EVERYDAY AT BEDTIME active Not Available Not Available No t Available venlafaxine ER 75 mg capsule,ext ended release 24 hr active Not Available Not Available Not Available fluconazole 150 mg tablet TAKE 1 TAB BY MOUTH NOW AND THEN TAKE THE SECOND PILL 48HRS LATER NEEDED FOR YEAST INFECTION active Not Available Not Available No t Available glyburide 2.5 mg tablet active Not Available Not Available Not Available senna 8.6 mg tablet TAKE 4 TABLETS BY MOUTH AT BEDTIME 11/06 completed Not Available Not Available Not Available metronidazo le 0.75 % (37.5 mg/5 gram) vaginal gel INSERT 1 APPLICATO RFUL VAGINALLY AT BEDTIME FOR 5 NIGHTS 07/01 completed Not Available Not Available Not Available sumatriptan 50 mg tablet TAKE 1 TABLET BY MOUTH NEEDED FOR MIGRAINE OR HEADACHE 02/08 completed Not Available Not Available Not Available topiramate 25 mg tablet TAKE 2 TABLETS BY MOUTH TWICE A DAY 11/04 completed Not Available Not Available Not Available acyclovir 400 mg tablet TAKE 1 TABLET BY MOUTH THREE TIMES A DAY FOR 5 DAYS. START WITHIN 48 HOURS OF ONSET 02/08 completed Not Available Not Available Not Available valacyclovi r 500 mg tablet TAKE 1 TABLET BY MOUTH EVERY 12 HOURS 07/01 completed Not Available Not Available Not Available sulfamethox azole 800 mg-trimetho prim 160 mg tablet active Not Available Not Available Not Available amitriptyli ne 25 mg tablet TAKE 1 TABLET BY MOUTH EVERY DAY AT NIGHT active Not Available Not Available No t Available cephalexin 500 mg capsule TAKE 1 CAPSULE BY MOUTH TWICE A DAY FOR 3 DAYS 07/01 completed Not Available Not Available Not Available acyclovir 5 % topical ointment APPLY TO AFFECTED AREA 3 TIMES A DAY 07/01 completed Not Available Not Available Not Available oxybutynin chloride ER 5 mg tablet,exte nded release 24 hr TAKE 1 TABLET (5 MG TOTAL) BY MOUTH DAILY. active Not Available Not Available No t Available aspirin 81 mg chewable tablet Chew 1 tablet every day by oral route. 11/06 completed Not Available Not Available Not Available diclofenac sodium 75 mg tablet,glen yed release active Not Available Not Available Not Available methylpredn isolone 4 mg tablets in a dose pack TAKE 6 TABLETS ON DAY 1 DIRECTED ON PACKAGE AND DECREASE BY 1 TAB EACH DAY FOR A TOTAL OF 6 DAYS 02/08 completed Not Available Not Available Not Available oxybutynin chloride 5 mg tablet TAKE 1 TABLET BY MOUTH EVERY DAY 11/06 completed Not Available Not Available Not Available ondansetron 4 mg disintegrat ing tablet TAKE 1 TABLET BY MOUTH EVERY 8 HOURS NEEDED FOR NAUSEA OR VOMITING. DISSOLVE TABLET UNDER TONGUE 02/08 completed Not Available Not Available Not Available topiramate 100 mg tablet TAKE 1 TABLET BY MOUTH TWICE A DAY 02/08 completed Not Available Not Available Not Available metformin ER 500 mg tablet,exte nded release 24 hr TAKE 2 TABLETS BY MOUTH TWICE A DAY active Not Available Not Available No t Available glipizide 5 mg tablet TAKE 1 TABLET BY MOUTH TWICE A DAY active Not Available Not Available No t Available naproxen 500 mg tablet TAKE 1 TABLET BY MOUTH TWICE A DAY NEEDED 02/08 completed Not Available Not Available Not Available acyclovir 5 % topical cream APPLY TO AFFECTED AREA 5 TIMES A DAY NEEDED active Not Available Not Available No t Available topiramate 50 mg tablet TAKE 1 TABLET BY MOUTH IN THE MORNING AND TAKE 2 TABLETS IN THE EVENING 12/14 completed Not Available Not Available Not Available nitrofurant oin monohydrate /macrocryst als 100 mg capsule TAKE 1 CAPSULE BY MOUTH EVERY 12 HOURS WITH FOOD FOR 3 DAYS 07/01 completed Not Available Not Available Not Available duloxetine 20 mg capsule,del ayed release 1 cap po daily active Not Available Not Available No t Available duloxetine 30 mg capsule,del ayed release TAKE 1 CAPSULE BY MOUTH EVERY DAY active Not Available Not Available No t Available duloxetine 60 mg capsule,del ayed release TAKE 1 CAPSULE BY MOUTH EVERY DAY active Not Available Not Available No t Available chlorhexidi ne gluconate 0.12 % mouthwash PLEASE SEE ATTACHED FOR DETAILED DIRECTION S 11/06 completed Not Available Not Available Not Available metformin ER 500 mg 24 hr tablet,exte nded release (gastric retention) 1 tab po daily 01/05 completed Not Available Not Available Not Available cholecalcif valerie (vitamin D3) 25 mcg (1,000 unit) tablet TAKE 2 TABLETS BY MOUTH DAILY 04/28 completed Not Available Not Available Not Available Chantix Continuing Month Box 1 mg tablet 07/01 completed Not Available Not Available Not Available Farxiga 10 mg tablet Take 1 tablet every day by oral route. 11/17 completed Not Available Not Available Not Available Farxiga 5 mg tablet TAKE 1 TABLET BY MOUTH EVERY DAY 11/17 completed Not Available Not Available Not Available FreeStyle Catrachito 14 Day [place] active Not Available Not Available N ot Available FreeStyle Catrachito 14 Day Sensor kit active Not Available Not Available Not Available Afluria Qd 2018- (36 mos up)(PF)60 mcg (15 mcg x4)/0.5 mL IM syringe 11/06 completed Not Available Not Available Not Available Rybelsus 3 mg tablet TAKE 1 TABLET BY MOUTH EVERY DAY 11/06 completed Not Available Not Available Not Available Fluzone Quad (PF) 60 mcg (15 mcg x 4)/0.5 mL IM syringe [facility] active Not Available Not Available No t Available Qulipta 60 mg tablet Take 1 tablet every day by oral route. 07/21 completed Not Available Not Available Not Available Mounjaro 5 mg/0.5 mL subcutaneou s pen injector Inject 5 mg every week by subcutane ous route. active Not Available Not Available No t Available Mounjaro 2.5 mg/0.5 mL subcutaneou s pen injector Inject 2.5 mg every week by subcutane ous route. active Not Available Not Available No t Available Vitals Date Recorded Body height Body mass index (BMI) Body weight Body temperature Respiratory rate Heart rate Oxygen saturation Oxygen saturation in Arterial blood by Pulse oximetry Pain severity - 0-10 verbal numeric rating [Score] - Reported Systolic blood pressure Diastolic blood pressure Provider Name and Address Organization Details Last Updated DateTime 3 172.72 cm 20.7 kg/m2 32385.5 6 g 97.7 [degF] 16 /min 96 /min 96 % 96 % 7 130 mm[Hg] 82 mm[Hg] HERNANDEZ Bustamante [facility] 3 11:30:47 Date Recorded Body height Body mass index (BMI) Body weight Body temperature Heart rate Respiratory rate Oxygen saturation Oxygen saturation in Arterial blood by Pulse oximetry Pain severity - 0-10 verbal numeric rating [Score] - Reported Systolic blood pressure Diastolic blood pressure Provider Name and Address Organization Details Last Updated DateTime 3 172.72 cm 20.3 kg/m2 67678.8 9 g 96.4 [degF] 81 /min 16 /min 94 % 94 % 10 130 mm[Hg] 84 mm[Hg] HERNANDEZ Bustamante [facility] 3 11:34:34 Date Recorded Body height Body mass index (BMI) Body weight Body temperature Heart rate Respiratory rate Oxygen saturation Oxygen saturation in Arterial blood by Pulse oximetry Pain severity - 0-10 verbal numeric rating [Score] - Reported Systolic blood pressure Diastolic blood pressure Provider Name and Address Organization Details Last Updated DateTime 3 172.72 cm 20.7 kg/m2 25249.0 1 g 97 [degF] 83 /min 16 /min 94 % 94 % 10 118 mm[Hg] 76 mm[Hg] Precious Tijerina RN [facility] [employer] [facility] 3 11:29:04 Date Recorded Body height Body mass index (BMI) Body weight Body temperature Heart rate Respiratory rate Oxygen saturation Oxygen saturation in Arterial blood by Pulse oximetry Pain severity - 0-10 verbal numeric rating [Score] - Reported Systolic blood pressure Diastolic blood pressure Provider Name and Address Organization Details Last Updated DateTime 3 172.72 cm 21 kg/m2 50402.8 5 g 96.7 [degF] 81 /min 20 /min 97 % 97 % 10 134 mm[Hg] 82 mm[Hg] Precious Tijerina RN [facility] 3 14:37:36 Date Recorded Body height Body mass index (BMI) Body weight Provider Name and Address Organization Details Last Updated DateTime 04/28/2023 172.72 cm 20.4 kg/m2 74317.38 g Josselyn Marcos [place] [employer] [facility] 04/28/2023 10:13:34 Social History Question Answer Notes LastModified by Organization Details LastModified Time Tobacco Smoking Status Current Every Day Smoker Not Available [facility] 06/02/2022 02:31:30 Do You Have An Advance Directive? Yes Information not available 11/04/2022 What Is Your Level Of Alcohol Consumption? Occasional [id number] Information not available 06/02/2022 Is Blood Transfusion Acceptable In An Emergency? Yes Information not available 11/04/2022 What Is Your Level Of Caffeine Consumption? Heavy Mt. Dew Information not available 02/08/2023 How Much Tobacco Do You Chew? None [id number] Information not available 06/02/2022 What Is Your Code Status? Full Code Information not available 02/08/2023 In The 14 Days Before Symptom Onset, Have You Had Close Contact With A Laboratory-confi rmed COVID-19 While That Case Was Ill? No [id number] Information not available 06/02/2022 In The 14 Days Before Symptom Onset, Have You Had Close Contact With A Person Who Is Under Investigation For COVID-19 While That Person Was Ill? No MIGRATION.[id number] Information not available 06/02/2022 What Type Of Diet Are You Following? DIABETIC Type 2 Dm MIGRATION.030 [id number] Information not available 06/02/2022 Which Illicit Or Recreational Drugs Have You Used? None MIGRATION.030 [id number] Information not available 06/02/2022 Do You Or Have You Ever Used E-cigarettes Or Vape? Never Used Electronic Cigarettes MIGRATION.030 [id number] Information not available 06/02/2022 What Is The Highest Grade Or Level Of School You Have Completed Or The Highest Degree You Have Received? [id number] MIGRATION.030 [id number] Information not available 06/02/2022 What Is Your Occupation? [employer] Hasn't Been Able To Work Information not available 03/22/2023 How Many Days Of Moderate To Strenuous Exercise, Like A Brisk Walk, Did You Do In The Last 7 Days? 7 Information not available 11/04/2022 On Those Days That You Engage In Moderate To Strenuous Exercise, How Many Minutes, On Average, Do You Exercise? 60 Information not available 11/04/2022 Have There Been Any Changes To Your Family Or Social Situation? No Information not available 07/21/2022 Do You Use Insect Repellent Routinely? Yes Information not available 07/21/2022 Where Do You Live? SingleLevelHouse Information not available 07/21/2022 Do You Have A Medical Power Of Toy Painter? Yes Information not available 11/04/2022 What Was The Date Of Your Most Recent Tobacco Screening? 07/01/2020 [id number] Information not available 06/02/2022 How Many Children Do You Have? 2 Information not available 07/21/2022 Do You Have Any Pets? Yes Information not available 07/21/2022 What Is Your Relationship Status? [id number] Information not available 06/02/2022 Do You Use Your Seat Belt Or Car Seat Routinely? Yes Information not available 07/21/2022 Do You Have Smoke And Carbon Monoxide Detectors In Your Home? Yes Information not available 07/21/2022 At What Age Did You Start Smoking Tobacco? 17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
--- OUTSIDE RECORDS SUMMARY | 2024-05-15 00:36 | XMS_ITS ---
Author Organization [facility] Address [address] [address] Care Team Providers Care Hadoop Infrastructure Architect Name Role Phone rPecious Desouza Primary Care Provider Dr. John Fu Unavailable [phone] [facility], Provider Unavailable Unavailab le REASON FOR [...] once a day for 30 day(s) Active Encounters Encounter Location Date Provider Diagnosis [address] [address] 09/17/2023 Provider Z[facility]-Migration Plan Of Treatment No Information Progress Notes * ROSA ELENAARVIND BlairaDOB:1965 (59 yo F)Acc No.[id number]:09/17/2023 Patient: Js BOOTH Provider: Yvonne Chen :1965 A ge:58 Y S ex:Female Date:09/17/2023 Address[facility] Pcp:Precious Barber, GAMEMASTER- Subjective: * Chief Complaints: * 1 . [...] Procedure Codes: * Electronic signature of Shonda CalvilloRajinder-Migration on 05/15/2024 at 12:36 AM PUBLICITY DIRECTOR Sign off status: Pending * Provider: Yvonne Chen Date: 09/17/2023 Generated for Emiliana shah/Tarah/Lisa on: 0 05/15/2024 12:36 AM PUBLICITY DIRECTOR
--- OUTSIDE RECORDS SUMMARY | 2024-05-15 00:37 | XMS_ITS | Encounter Summary ---
Author Organization [facility] Address [address] [place] [address] Phone Care Team Providers Care Nursing Project Coordinator Name Role Phone Precious Barber NP Primary Care Provider + Sylvester Gusman MD Unavailable [phone] Encounter Details Date Type Department Care Team (Late st Contact Info) Description 05/14/2024 Telephone [facility] Scheduling [address] [place] [address] Brandi Horton Social History Tobacco Use Types Packs/Day Years Used Date Smoking Tobacco: Every Day Cigarettes 1 15 Smokeless Tobacco: Never AUDIT-C Answer Date Recorded Q1: How often do you have a drink containing alc ohol? Never 03/14/2023 Q2: How many drinks containi ng alcohol do you have on a typical day when you are drinking? 1 or 2 03/14/2023 Q3: How often do you have six or more drinks on one occasion? 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
--- OUTSIDE RECORDS SUMMARY | 2024-05-15 00:37 | XMS_ITS | Referral Summary ---
Author Organization [facility] Address [address] [place] [address] Care Team Providers Care Data Abstractor Name Role Phone Precious Barber NP Primary Care Provider + Sylvester Gusman MD Unavailable Encounters Date Type Department Care Team Description 05/14/2024 Telephone [facility] Scheduling [address] [place] [address] Brandi Horton from Last 3 Months Allergies Active Allergy Reactions Criticality Noted Date Comments Miconazole Nitrate Swelling Medium 05/04/2011 Tioconazole Swelling Medium 04/20/2022 Medications cholecalcifer ol (VITAMIN D-3) 25 mcg (1,000 unit) tablet cholecalciferol (vitamin D3) 25 mcg (1,000 unit) tablet [address] (CYMBALTA) 30 mg capsule Take by mouth daily 023 Active glipiZIDE (GLUCOTROL) 5 mg tablet Take 5 mg by mouth 2 (two) times a day 022 Active metFORMIN XR (GLUCOPHAGE XR) 500 mg 24 hr tablet 022 Active oxybutynin XL (DITROPAN-XL) 5 mg 24 hr tablet 022 Active acyclovir (ZOVIRAZ) 5 % cream APPLY TO AFFECTED AREA 5 TIMES A DAY NEEDED Active atorvastatin (LIPITOR) 40 mg tablet Take 1 tablet (40 mg total) by mouth nightly 023 Active calcium carbonate-vit correia D3 1500 mg (600 mg elemental) -200 units per tablet every 8 hours Activ e clobetasoL (TEMOVATE) 0.05 % ointment APPLY VAGINALLY ONCE DAILY AT BEDTIME 024 Active fluconazole (DIFLUCAN) 150 mg tablet TAKE 1 TABLET BY MOUTH A SINGLE DOSE 024 Active Januvia 25 mg tablet 024 Active zinc gluconate 50 mg tablet daily Active amitriptyline (ELAVIL) 25 mg tablet TAKE 1 TABLET BY MOUTH EVERY DAY AT NIGHT 30 tablet 11 025 Active amitriptyline (ELAVIL) 25 mg tablet Take 1 tablet (25 mg total) by mouth nightly 30 tablet 11 023 2024 Discontinued Active Problems Problem Noted Date Diagnosed Date Chronic tension-type headache 03/14/2023 Upper respiratory infection 12/14/2022 Foot pain 11/04/2022 Vertigo of central origin, unspecified lateralit y 09/02/2022 Leukocytosis 07/21/2022 Headache 07/21/2022 Arthritis 04/20/2022 Overview (04/20/2022): neck Balance disorder 04/20/2022 Leg pain 04/20/2022 Low back pain 04/20/2022 Neck pain 04/20/2022 Herpes labialis 11/17/2021 Anxiety 11/06/2021 Fatigue 11/06/2021 Overactive bladder 11/06/2021 Urinary urgency 11/06/2021 Dizziness 06/08/2021 Precordial pain 06/08/2021 Current mild episode of carlos r depressive disorder without prior episode 03/18/2020 Mixed hyperlipidemia 12/11/2019 Vitamin D deficiency 09/27/2019 Congenital cerebral ventriculomegaly 01/23/2018 Overview (04/20/2022): Date Onset: 01/23/2018 RLS (restless legs syndrome) 05/27/2016 Overview (04/20/2022): Date Onset: 05/27/2016 Lumbar radiculopathy 11/29/2013 Overview (04/20/2022): Date Onset: 11/29/2013 Diabetes mellitus, type II 08/03/2012 Overview (04/20/2022): Date Onset: 08/03/2012 SAUL (generalized anxiety disorder) 08/03/2012 Overview (04/20/2022): Date Onset: 08/03/2012 Idiopathic normal pressure hydrocephalus (INPH) (CMS/HCC) 06/01/2012 Overview (04/20/2022): Date Onset: 06/01/2012 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 05/04/2011 Immunizations Name Administration Dates Next Due H1N1 Inj 07/15/2009 Influenza, Quadrivalent, Spl it, Preservative Free, Intramuscular 01/04/2020,01/27/2019 Influenza, Unspecified 01/27/2019,2017,02/14/2014,01/25 Pneumococcal Polysaccharide PPV23 09/27/2019 Tdap 02/05/2018 ZOSTER LIVE 11/24/2018 ZOSTER Recombinant 11/24/2018,06/19/2018 Social History Tobacco Use Types Packs/Day Years Used Date Smoking Tobacco: Every Day Cigarettes 1 15 Smokeless Tobacco: Never Tobacco Cessation:Ready to Q uit: Not Asked; Counseling Given: Yes AUDIT-C Answer Date Recorded Q1: How often [...] on file 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 Gender Identity Not on file Sexual Orientation Not on file Occupation Industry Job Start Date Job End Date [employer] Not on file Not on file Not on file Last Filed Vital Signs Vital Sign Reading Time Taken Comments Blood Pressure 121/83 11/10/2023 9:58 AM CDT Pulse 103 11/10/2023 9:58 AM CDT Temperature - - Respiratory Rate - - Oxygen Saturation - - Inhaled Oxygen Concentration - - Weight 62.6 kg (138 lb) 11/10/2023 9:58 AM CDT Height 172.7 cm (5' 8 ) 11/10/2023 9:58 AM CDT Body Mass Index 20.98 11/10/2023 9:58 AM CDT Plan of Treatment Not on file Insurance [facility] [place] [employer] [facility] Care Teams Data Abstractor Relationship Specialty Start Date End Date Precious Barber NP [address] [address] PCP - General Nurse Practitioner 03/10/22 Sylvester Gusman MD [address] [place] [address] [place] [address] Family Medicine 03/10/22
--- OUTSIDE RECORDS SUMMARY | 2024-05-15 00:37 | XMS_ITS ---
Author Organization [facility] Address [address] [place] [id number] Care Team Providers Care Welder/Fabricator Name Role Phone Precious Desouza Primary Care Provider Dr. John Fu Unavailable [phone] Allergies No Known Allergies REASON FOR VISIT Headache follow-up Medications Medication SIG (Take, Route, Frequency, Duration) Notes Start Date End Date Status CALCIUM 600+D 600 mg-5 mcg 1 tab(s) oral ly 3 times a day for 30 day(s) Active ZINC 140 mg (as elemental zinc 50 mg) 1 tab(s) orally once a day for 30 day(s) Active METFORMIN 500 mg 1 tab(s) orally 2 ti mes a day for 30 day(s) Active DULOXETINE 40 mg 1 cap(s) orally once a day Active Social History Tobacco Use: Social History Observation Description Date Details (start date - stop date) Current Smoker NA - NA Smoking Smart Form: Question Answer Notes Are you a: current smoker Encounters Encounter Location Date Provider Diagnosis [facility] [address] [place] [address] 08/03/2023 John Naidu Chronic tension-type headache, intractable G44.221 and Hydrocephalus, unspecified G91.9 Assessments Encounter Date Diagnosis (ICD Code) Assessment Notes Treatment Notes Treatment Clinical Notes Section Notes 08/03/2023 Chronic tension-type headache, intractable (ICD-10 - G44.221) 08/03/2023 Hydrocephalus, unspecified (ICD-10 - G91.9) Plan Of Treatment Next Appt Details Follow Up: 4 Weeks, Reason: Evaluation and Management Progress Notes * Blair ROMANaDOB:1965 (59 yo F)Acc No.[id number]:08/03/2023 Progress Notes Patient: Js BOOTH Provider: Sheri Naidu MD :1965 A ge:58 Y S ex:Female Date:08/03/2023 [facility] Pcp:Precious Barber, [facility] Subjective: * Chief Complaints: * 1 . Headache follow-up. * HPI: * Introduction: I had the pleasure of seeing Sue Roman, who presented for follow-up for headaches. * Initial History: INITIAL VISIT HISTORY: S he has a complex history. She is a 57 yo woman with h/o DM2, cervical DDD s/p cervical spinal fusion, and hydrocephalus s/p SUPERINTENDENT SANITATION shunt. She reports that she was never [...] the tumor and that she needed a SUPERINTENDENT SANITATION shunt. She had a SUPERINTENDENT SANITATION shunt placed with a programmable shunt done by Dr. Marge Baker at [facility]. She reports that after SUPERINTENDENT SANITATION shunt placement that she had substantial improvement [...] the degree that it was before the SUPERINTENDENT SANITATION shunt was placed. The headaches progressed and become daily. She was re- imaged and the ventricles had enlarged compared to the initial post-surgical imaging. The SUPERINTENDENT SANITATION shunt setting was changed to drain more CSF, however, she had almost immediate symptoms of nausea and she felt that the change in shunt setting caused the symptom and so it was changed back to the prior setting. She saw another Neurosurgeon at [facility] who told her that this might [...] days/month: 30/0 L ast visit headache/migraine days/month: 300 C urrent headache/migraine days/month: / I nterval [...] mellitus, RLS. * Surgical History: S /p SUPERINTENDENT SANITATION shunt , S/p cervical spinal fusion . [...] Management) * Billing Information: * Visit Code: 27990 Office Visit, Est Pt., Level 4. Modifiers: 25 18316 Office Visit, Est Pt., Level 3. Modifiers: 25 * Procedure Codes: 06251 PT-FOCUSED HLTH RISK ASSMT. G8427 DOC MEDS VERIFIED W/PT OR RE. * Electronic signature of Dr. John Naidu MD on 05/15/2024 at 12:37 AM JET ENGINE MECHANIC Sign off status: Pending * Provider: Sheri Naidu MD Date: 08/03/2023 Generated for Emiliana shah/Tarah/Cherrieitting on: 05/15/2024 12:37 AM JET ENGINE MECHANIC History and Physical Notes * HPI (History of Present Illness) Category Sub-Category Detail Notes Category Notes *Introduction I had the pleasure of seeing Dane Roman, who presented for follow-up for headaches *Initial History INITIAL VISIT HISTORY: She has a complex history. She is a 57 yo woman with h/o DM2, cervical DDD s/p cervical spinal fusion, and hydrocephalus s/p SUPERINTENDENT SANITATION shunt. She reports that she was never [...] the tumor and that she needed a SUPERINTENDENT SANITATION shunt. She had a SUPERINTENDENT SANITATION shunt placed with a programmable shunt done by Dr. Marge Baker at [facility]. She reports that after SUPERINTENDENT SANITATION shunt placement that she had substantial improvement [...] the degree that it was before the SUPERINTENDENT SANITATION shunt was placed. The headaches progressed and become daily. She was re-imaged and the ventricles had enlarged compared to the initial post-surgical imaging. The SUPERINTENDENT SANITATION shunt setting was changed to drain more CSF, however, she had almost immediate symptoms of nausea and she felt that the change in shunt setting caused the symptom and so it was changed back to the prior setting. She saw another Neurosurgeon at [facility] who told her that this might [...] headache is not positional. The headache is bilateral/generali zed, sometimes more on the right side but [...] HISTORY: She still has chronic daily headaches, bilateral/generali zed worse in bilateral frontotemporal, worse on right, [...]
--- OUTSIDE RECORDS SUMMARY | 2024-05-15 00:37 | XMS_ITS ---
Author Organization [facility] Address [address] [place] [address] Care Team Providers Care Engine Oiler Name Role Phone Sunil [facility] SERNA Primary Care Provider Rebecca Dr. John Gupta [facility] [phone] REASON FOR VISIT Headache follow-up Encounters Encounter Location Date Provider Diagnosis [facility] [address] [place] [address] 08/04/2023 John Naidu Plan Of Treatment No Information Progress Notes * Willem ROMANB:1965 (59 yo F)Acc No.[id number]:08/04/2023 Progress Notes Patient: Js BOOTH Provider: Sheri Naidu MD :1965 A ge:58 Y S ex:Female Date:08/04/2023 Address:[facility] [address] [facility] Pcp:Precious Barber [facility] Subjective: * Chief Complaints: * 1 . Headache follow-up. * Medical History: Objective: * Vitals: Assessment: Plan: * Treatment: * Billing Information: * Visit Code: * Procedure Codes: * Electronic signature of Dr. John Naidu MD on 05/15/2024 at 12:36 AM ASSOCIATE DEAN Sign off status: Pending * Provider: Sheri Naidu MD Date: 0 08/04/2023 Generated for Emiliana shah/Tarah/Farhatsmitting on: 0 05/15/2024 12:36 AM ASSOCIATE DEAN
--- OUTSIDE RECORDS SUMMARY | 2024-05-15 00:37 | XMS_ITS | Clinical Summary ---
Author Organization [facility] Address [address] [place] [address] Care Team Providers Care Ccnp Name Role Phone Precious Barber NP Primary Care Provider + Sylvester Gusman MD Unavailable Allergies Active Allergy Reactions Criticality Noted Date [...] by mouth 2 (two) times a day Active metFORMIN XR (GLUCOPHAGE XR) 500 mg 24 hr tablet 022 Active oxybutynin XL (DITROPAN-XL) 5 mg 24 hr tablet 022 Active acyclovir (ZOVIRAZ) 5 % cream APPLY TO AFFECTED AREA 5 TIMES A DAY NEEDED 023 Active atorvastatin (LIPITOR) 40 mg tablet Take 1 tablet (40 mg total) by mouth nightly 023 Active calcium carbonate-vit correia D3 1500 mg (600 mg elemental) -200 units per tablet every 8 hours Activ e clobetasoL (TEMOVATE) 0.05 % ointment APPLY VAGINALLY ONCE DAILY AT BEDTIME 024 Active fluconazole (DIFLUCAN) 150 mg tablet TAKE 1 TABLET BY MOUTH A SINGLE DOSE Active Januvia 25 mg tablet 024 Active [...] of intervertebral disc without myel opathy 05/04/2011 Encounters Date Type Department Care Team Description 05/14/2024 Telephone [facility] Scheduling [address] [place] [address] Brandi Horton from Last 3 Months Immunizations Name Administration Dates Next Due H1N1 Inj 07/15/2009 Influenza, Quadrivalent, Spl it, Preservative Free, Intramuscular 01/04/2020,01/27/2019 Influenza, Unspecified 01/27/2019,2017,02/14/2014,01/25 Pneumococcal Polysaccharide PPV23 09/27/2019 Tdap 02/05/2018 ZOSTER LIVE 11/24/2018 ZOSTER Recombinant 11/24/2018,06/19/2018 Surgical History Surgery Date Site/Laterality Comments OTHER SURGICAL HISTORY 10/22/2020 Shunt Medical History Medical History Date Comments Brain tumor (benign) (HCC) Type 2 diabetes mellitus (HCC) Family History Medical History Relation Name Comments Diabetes Father Heart attack Father Relation Name Status Comments Father Social History Tobacco Use Types Packs/Day Years [...] on file Legal 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 Gender Identity Not on file Sexual Orientation Not on file Occupation Industry Job Start Date Job End Date [employer] Not on file Not on file Not on file Obstetrics History Last Filed Vital Signs Vital Sign Reading [...] 11/10/2023 9:58 AM CDT Plan of Treatment Health Maintenance Due Date Last Done Comments Albumin Creatinine Ratio, Urine 1965 Breast Cancer Screening-Mammogram 1965 Cervical Cancer Screening 1965 Colon Cancer Screening-Colonoscopy 1965 Depression Screening 1965 Hemoglobin A1C 1965 Hepatitis C Screening 1965 eGFR 1965 Foot Exam 1965 Hepatitis B Screening 1983 Regular Well Visit/Exam 18-64 1983 Pneumococcal vaccine <65 (2 of 2 - PCV) 09/26/2020 09/27/2019 Lipid Panel 04/17/2021 04/17/2020 Dilated Eye Exam 08/17/2023 08/16/2022 Influenza Vaccine (#1) 2023 0, 01/27/2019, 01/27/2019, Additional history exists DTaP/Tdap/Td Vaccine (2 - Td or Tdap) 02/06/2028 02/05/2018 Zoster Vaccine Completed 11/24/2018, 11/03, 06/19/2018 Insurance [employer] OOS CHOICE [facility] [place]PO [place] Care Teams Ccnp Relationship Specialty Start Date End Date Precious Barber NP [address] [address] PCP - General Nurse Practitioner 03/10/22 Sylvester Gusman MD [address] [place] [address] [place] [address] Family Medicine 03/10/22
[2024-05-15 06:56] VITALS: BP 130/77; PULSE 85; RESP 18; TEMP 36.1; O2SAT 100
[2024-05-15] MEDS: LACTATED RINGERS 1,000 ML 150 ML IV CONT (07:07)
[2024-05-15 07:19] LABS: Glucose Point of Care 171 mg/dl (65-105)
--- NOTE | 2024-05-15 07:27 | P.PNAN_ITS ---
Anes - Initial Pre Proc Eval Procedure: Operation Date: 05/15/24 08:00 Proposed Procedures p Esophagogastroduodenoscopy - James Campbell MD Date/Time: 05/15/24 07:27 Surgeon: James Campbell MD Pre Op Diagnosis: Dysphagia Patient Data Age: 59 Gender: F Height: 1.73 m Weight: 56.5 kg Last Vital Signs Temp 97 F L 05/15/24 06:56 Pulse 85 05/15/24 06:56 Resp 18 05/15/24 06:56 BP 130/77 05/15/24 06:56 Pulse Ox 100 05/15/24 06:56 O2 Del Method Room Air 05/15/24 06:56 Allergies Allergy/AdvReac Type Severity Reaction Status Date / Time hydrocodone AdvReac Mild Nausea and Verified 05/15/24 06:52 Vomiting 1. MONISTAT Allergy Mild Swelling Uncoded 05/15/24 06:52 Home Medications ?Medication ?Instructions ?Recorded ?Confirmed ?Type clobetasol 0.05 % topical ointment See Rx Instructions .Route 10/10/23 05/15/24 Rx .COMPLEX #30 grams glipizide 5 mg tablet 5 mg PO BID #180 tabs 10/12/23 05/15/24 Rx sitagliptin phosphate 25 mg tablet 25 mg PO DAILY #90 tabs 10/12/23 05/15/24 Rx (Januvia) pregabalin 75 mg capsule 75 mg PO Q12H 30 days #60 caps 01/02/24 05/15/24 Rx lisinopril 2.5 mg tablet 2.5 mg PO DAILY #90 tabs 01/04/24 05/15/24 Rx acyclovir 5 % topical cream 1 applic topical .five times daily 01/12/24 05/15/24 Rx #5 grams ascorbic acid (vitamin C) 500 mg 500 mg PO DAILY 01/16/24 05/15/24 History tablet cholecalciferol (vitamin D3) 50 50 mcg PO DAILY 01/16/24 05/15/24 History mcg (2,000 unit) capsule omeprazole 40 mg capsule,delayed See Rx Instructions .Route 04/05/24 05/15/24 Rx release .COMPLEX #90 caps metformin 500 mg tablet,extended 1,000 mg (2 x 500 mg) PO BID #360 04/06/24 05/15/24 Rx release 24 hr tabs duloxetine 30 mg capsule,delayed See Rx Instructions .Route 04/12/24 05/15/24 Rx release .COMPLEX #90 caps acyclovir 5 % topical ointment 1 applic topical 6XD 7 days #30 04/20/24 05/15/24 Rx grams Lactobacillus acidophilus and 1 cap PO DAILY 05/07/24 05/15/24 History rhamnosus 15 billion cell capsule (Florajen Women) [id number]-kyor tablet 1 tablet PO DAILY 05/07/24 05/15/24 History duloxetine 60 mg capsule,delayed 60 mg PO DAILY 05/07/24 05/15/24 History release atorvastatin 40 mg tablet 40 mg PO DAILY #90 tabs 05/08/24 05/15/24 Rx oxybutynin chloride 5 mg See Rx Instructions .Route 05/08/24 05/15/24 Rx tablet,extended release 24 hr .COMPLEX #90 tabs Laboratory Tests 05/15/24 07:15 POC Capillary Glucose 171 H mg/dl (65-105) Results Review: All pre-operative results and documents have been reviewed as part of the pre- operative evaluation. [facility] Past Medical History Medical History Tobacco dependence Restless legs Hyperlipidemia Vaginal discharge Screening for breast cancer Encounter for gynecological examination Headache HSV (herpes simplex virus) infection Overactive bladder Diabetes mellitus type 2 Anxiety Hypercholesteremia Vaginal delivery x1 Surgical History Surgical History History of brain shunt History of foot surgery right foot History of surgery of head 10/08/20, stent placed Previous section x1 H/O shoulder surgery 2018 H/O neck surgery 2010 History of cholecystectomy 2005 Family History Family History Father Diabetes mellitus Social History Social History Social History: 04/26/24 patient declined SDOH Smoking packs per day: 0.5 Smoking cigarettes per day: 10.0 Smoking status: Current every day smoker Tobacco type: cigarettes Alcohol intake: current Alcohol use details: seldom Substance use: never Substance use type: does not use Do You Feel Safe in your Home?: Yes Lack of Transportation: No Lack of Food: Never True Current Housing: I Have Housing Concerned About Future Housing: No Difficulty Paying Gas/Electric Bills: No Difficulty Paying for Meds: No Currently Unemployed: No Education: Trade/Vocational Certificate Difficulty w/ Childcare or Family Care: No Living arrangements: with family Occupation/Education: other Gender identity (if verbalized by the patient): Female Anes - Eval Final PreProcedure Day of Procedure 05/15/24 07:27 Patient weight: normal Lungs: clear to auscultation Neurological: alert and oriented Last oral intake: >/= 8 hours ASA classification: III Anesthetic plan: proceed Anesthesia type and monitoring: general GIVS Results Review: All pre-operative results and documents have been reviewed as part of the pre- operative evaluation. Informed Consent: The patient's anesthetic plan and its attendant risks and benefits were discussed with the patient/family/POA. Questions were solicited and answers provided to the satisfaction of the patient/family/POA.
--- NOTE | 2024-05-15 07:40 | WPDANESEPPF ---
Anes - Initial Pre Proc Eval Procedure: Operation Date: 05/15/24 08:00 Proposed Procedures p Esophagogastroduodenoscopy - James Campbell MD Date/Time: 05/15/24 07:40 Surgeon: James Campbell MD Pre Op Diagnosis: Dysphagia Patient Data Age: 59 Gender: F Height: 1.73 m Weight: 56.5 kg Last Vital Signs Temp 36.1 C L 05/15/24 06:56 Pulse 85 05/15/24 06:56 Resp 18 05/15/24 06:56 BP 130/77 05/15/24 06:56 Pulse Ox 100 05/15/24 06:56 O2 Del Method Room Air 05/15/24 06:56 Allergies Allergy/AdvReac Type Severity Reaction Status Date / Time hydrocodone AdvReac Mild Nausea and Verified 05/15/24 06:52 Vomiting 1. MONISTAT Allergy Mild Swelling Uncoded 05/15/24 06:52 Home Medications ?Medication ?Instructions ?Recorded ?Confirmed ?Type clobetasol 0.05 % topical ointment See Rx Instructions .Route 10/10/23 05/15/24 Rx .COMPLEX #30 grams glipizide 5 mg tablet 5 mg PO BID #180 tabs 10/12/23 05/15/24 Rx sitagliptin phosphate 25 mg tablet 25 mg PO DAILY #90 tabs 10/12/23 05/15/24 Rx (Januvia) pregabalin 75 mg capsule 75 mg PO Q12H 30 days #60 caps 01/02/24 05/15/24 Rx lisinopril 2.5 mg tablet 2.5 mg PO DAILY #90 tabs 01/04/24 05/15/24 Rx acyclovir 5 % topical cream 1 applic topical .five times daily 01/12/24 05/15/24 Rx #5 grams ascorbic acid (vitamin C) 500 mg 500 mg PO DAILY 01/16/24 05/15/24 History tablet cholecalciferol (vitamin D3) 50 50 mcg PO DAILY 01/16/24 05/15/24 History mcg (2,000 unit) capsule omeprazole 40 mg capsule,delayed See Rx Instructions .Route 04/05/24 05/15/24 Rx release .COMPLEX #90 caps metformin 500 mg tablet,extended 1,000 mg (2 x 500 mg) PO BID #360 04/06/24 05/15/24 Rx release 24 hr tabs duloxetine 30 mg capsule,delayed See Rx Instructions .Route 04/12/24 05/15/24 Rx release .COMPLEX #90 caps acyclovir 5 % topical ointment 1 applic topical 6XD 7 days #30 04/20/24 05/15/24 Rx grams Lactobacillus acidophilus and 1 cap PO DAILY 05/07/24 05/15/24 History rhamnosus 15 billion cell capsule (Florajen Women) cqdwocz-wfpsngcmm-deij tablet 1 tablet PO DAILY 05/07/24 05/15/24 History duloxetine 60 mg capsule,delayed 60 mg PO DAILY 05/07/24 05/15/24 History release atorvastatin 40 mg tablet 40 mg PO DAILY #90 tabs 05/08/24 05/15/24 Rx oxybutynin chloride 5 mg See Rx Instructions .Route 05/08/24 05/15/24 Rx tablet,extended release 24 hr .COMPLEX #90 tabs Laboratory Tests 05/15/24 07:15 POC Capillary Glucose 171 H mg/dl (65-105) Patient hx anesthesia problems: none Family hx anesthesia problems: none Results Review: All pre-operative results and documents have been reviewed as part of the pre-operative evaluation. [facility] Past Medical History Medical History Tobacco dependence Restless legs Hyperlipidemia Vaginal discharge Screening for breast cancer Encounter for gynecological examination Headache HSV (herpes simplex virus) infection Overactive bladder Diabetes mellitus type 2 Anxiety Hypercholesteremia Vaginal delivery x1 Surgical History Surgical History History of brain shunt History of foot surgery right foot History of surgery of head 10/08/20, stent placed Previous section x1 H/O shoulder surgery 2018 H/O neck surgery 2010 History of cholecystectomy 2005 Family History Family History Father Diabetes mellitus Social History Social History Social History: 04/26/24 patient declined SDOH Smoking packs per day: 0.5 Smoking cigarettes per day: 10.0 Smoking status: Current every day smoker Tobacco type: cigarettes Alcohol intake: current Alcohol use details: seldom Substance use: never Substance use type: does not use Do You Feel Safe in your Home?: Yes Lack of Transportation: No Lack of Food: Never True Current Housing: I Have Housing Concerned About Future Housing: No Difficulty Paying Gas/Electric Bills: No Difficulty Paying for Meds: No Currently Unemployed: No Education: Trade/Vocational Certificate Difficulty w/ Childcare or Family Care: No Living arrangements: with family Occupation/Education: other Gender identity (if verbalized by the patient): Female Anes - Eval Final PreProcedure Day of Procedure 05/15/24 07:40 Patient weight: normal Heart: regular rate and rhythm Lungs: clear to auscultation Airway: Mallampati scale class 1 Neurological: alert and oriented Last oral intake: >/= 8 hours ASA classification: III Emergent: no Anesthetic plan: proceed Anesthesia type and monitoring: general GIVS and standard monitoring Results Review: All pre-operative results and documents have been reviewed as part of the pre-operative evaluation. Informed Consent: The patient's anesthetic plan and its attendant risks and benefits were discussed with the patient/family/POA. Questions were solicited and answers provided to the satisfaction of the patient/family/POA.
--- NOTE | 2024-05-15 08:14 | P.HP_ITS ---
H&P: HPI History of Present Illness Date/Time: 05/15/24 08:14 Chief Complaint: Dyspepsia Narrative: the patient has a history significant for of VIRTUAL OFFICE ASSISTANT shunt placed in 2020. Since then, she has been experiencing constant headaches. Along with this, she has been endorsing early satiety, nausea and epigastric discomfort associated with meals. She is sent here for EGD. Review of Systems Review of Systems: All systems reviewed & are unremarkable except as noted in HPI and below PMFSH Past Medical History Medical History Tobacco dependence Restless legs Hyperlipidemia Vaginal discharge Screening for breast cancer Encounter for gynecological examination Headache HSV (herpes simplex virus) infection Overactive bladder Diabetes mellitus type 2 Anxiety Hypercholesteremia Vaginal delivery x1 Surgical History Surgical History History of brain shunt History of foot surgery right foot History of surgery of head 10/08/20, stent placed Previous section x1 H/O shoulder surgery 2018 H/O neck surgery 2010 History of cholecystectomy 2005 Family History Family History Father Diabetes mellitus Social History Social History Social History: 04/26/24 patient declined SDOH Smoking packs per day: 0.5 Smoking cigarettes per day: 10.0 Smoking status: Current every day smoker Tobacco type: cigarettes Alcohol intake: current Alcohol use details: seldom Substance use: never Substance use type: does not use Do You Feel Safe in your Home?: Yes Lack of Transportation: No Lack of Food: Never True Current Housing: I Have Housing Concerned About Future Housing: No Difficulty Paying Gas/Electric Bills: No Difficulty Paying for Meds: No Currently Unemployed: No Education: Trade/Vocational Certificate Difficulty w/ Childcare or Family Care: No Living arrangements: with family Occupation/Education: other Gender identity (if verbalized by the patient): Female Meds Home Medications and Allergies Home Medications ?Medication ?Instructions ?Recorded ?Confirmed ?Type clobetasol 0.05 % topical ointment See Rx Instructions .Route 10/10/23 05/15/24 Rx .COMPLEX #30 grams glipizide 5 mg tablet 5 mg PO BID #180 tabs 10/12/23 05/15/24 Rx sitagliptin phosphate 25 mg tablet 25 mg PO DAILY #90 tabs 10/12/23 05/15/24 Rx (Januvia) pregabalin 75 mg capsule 75 mg PO Q12H 30 days #60 caps 01/02/24 05/15/24 Rx lisinopril 2.5 mg tablet 2.5 mg PO DAILY #90 tabs 01/04/24 05/15/24 Rx acyclovir 5 % topical cream 1 applic topical .five times daily 01/12/24 05/15/24 Rx #5 grams ascorbic acid (vitamin C) 500 mg 500 mg PO DAILY 01/16/24 05/15/24 History tablet cholecalciferol (vitamin D3) 50 50 mcg PO DAILY 01/16/24 05/15/24 History mcg (2,000 unit) capsule omeprazole 40 mg capsule,delayed See Rx Instructions .Route 04/05/24 05/15/24 Rx release .COMPLEX #90 caps metformin 500 mg tablet,extended 1,000 mg (2 x 500 mg) PO BID #360 04/06/24 05/15/24 Rx release 24 hr tabs duloxetine 30 mg capsule,delayed See Rx Instructions .Route 04/12/24 05/15/24 Rx release .COMPLEX #90 caps acyclovir 5 % topical ointment 1 applic topical 6XD 7 days #30 04/20/24 05/15/24 Rx grams Lactobacillus acidophilus and 1 cap PO DAILY 05/07/24 05/15/24 History rhamnosus 15 billion cell capsule (Florajen Women) hchnmkg-ugtixwxtj-mpca tablet 1 tablet PO DAILY 05/07/24 05/15/24 History duloxetine 60 mg capsule,delayed 60 mg PO DAILY 05/07/24 05/15/24 History release atorvastatin 40 mg tablet 40 mg PO DAILY #90 tabs 05/08/24 05/15/24 Rx oxybutynin chloride 5 mg See Rx Instructions .Route 05/08/24 05/15/24 Rx tablet,extended release 24 hr .COMPLEX #90 tabs Allergies Allergy/AdvReac Type Severity Reaction Status Date / Time hydrocodone AdvReac Mild Nausea and Verified 05/15/24 06:52 Vomiting 1. MONISTAT Allergy Mild Swelling Uncoded 05/15/24 06:52 Vital Signs Vital Signs - 24 hr 05/15/24 06:56 Temperature 97 F L Pulse Rate 85 Respiratory Rate 18 Blood Pressure 130/77 Pulse Oximetry 100 Oxygen Delivery Room Air Exam Const: General: cooperative and healthy appearing Resp: Effort & Inspection: normal respiratory effort and able to speak in complete sentences Auscultation: clear to auscultation bilaterally Cardio: Rate: regular rate Rhythm: regular rhythm GI: Inspection: normal to inspection GI Palp: No No hepatosplenomegaly present Auscultation: normal bowel sounds Rectal Exam: deferred Skin: General skin exam: normal color Psych: Appearance: grossly normal Mental Status: mental status grossly normal Assessment and Plan Assessment and plan (1) Dyspepsia: Code(s): R10.13 - Epigastric pain Status: Acute Assessment and Plan: The patient is deemed a good candidate for the procedure. Consent signed. Will proceed.
[2024-05-15] MEDS: BENZOCAINE (*SP) 60 ML SPRAY CAN (HURRICAINE) 1 SPRAY MUCOUS MEM (08:17)
[2024-05-15 08:25] VITALS: BP 91/54; PULSE 86; RESP 27; O2SAT 94
[2024-05-15 08:35] VITALS: BP 91/59; PULSE 80; RESP 20; O2SAT 97
[2024-05-15 08:45] VITALS: BP 99/68; PULSE 80; RESP 23; O2SAT 97
== END 2024-05-15 09:00 | disposition home or self-care (01) ==
PROVIDERS: PCP Nurse Practitioner Family; Visit Provider Internal Medicine Gastroenterology
PROC: 0DJ08ZZ Inspection of Upper Intestinal Tract, Via Natural or Artificial Opening Endoscopic (ICD-10-PCS; CPT 43239; principal; 2024-05-15 08:00)
DX: K29.30 Chronic superficial gastritis without bleeding (principal); G25.81 Restless legs syndrome; N32.81 Overactive bladder; E11.9 Type 2 diabetes mellitus without complications; F41.9 Anxiety disorder, unspecified; E78.00 Pure hypercholesterolemia, unspecified; F17.210 Nicotine dependence, cigarettes, uncomplicated; Z79.84 Long term (current) use of oral hypoglycemic drugs; Z98.890 Other specified postprocedural states; Z98.2 Presence of cerebrospinal fluid drainage device; Z90.49 Acquired absence of other specified parts of digestive tract; Z98.1 Arthrodesis status
CPT/HCPCS: 43239; 82948; 88305; J2003; J2704; J7120

== ENCOUNTER 2024-11-22 11:29 | Outpatient (CLI) | payer MEDICARE, SELFPAY ==
--- OUTSIDE RECORDS SUMMARY | 2023-08-03 12:30 | XMS_ITS ---
Author Organization [employer] [facility] [employer] [place] ([address]) Address [address] [place] [address] Care Team Providers Care Risk Control Representative Name Role Phone Sunil BREEN-Precious Primary Care Provider Rebecca Dr. John Gupta [facility] [phone] Allergies No Known Allergies REASON FOR VISIT Headache follow-up Medications Medication SIG (Take, Route, Frequency, Duration) Notes Start Date End Date Status CALCIUM 600+D 600 mg-5 mcg 1 tab(s) oral ly 3 times a day; Duration: 30 day(s) Active ZINC 140 mg (as elemental zinc 50 mg) 1 tab(s) orally once a day; Duration: 30 day(s) Active METFORMIN 500 mg 1 tab(s) orally 2 ti mes a day; Duration: 30 day(s) Active DULOXETINE 40 mg 1 cap(s) orally once a day Active Social History Tobacco Use: Social History Observation Description Date Details (start date - stop date) Current Smoker NA - NA Smoking Smart Form: Question Answer Notes Are you a: current smoker Encounters Encounter Location Date Provider Diagnosis [facility] [address] [place] [address] 08/03/2023 John Naidu Chronic tension-type headache, intractable G44.221 and Hydrocephalus, unspecified G91.9 Assessments Encounter Date Diagnosis (ICD Code) Assessment Notes Treatment Notes Treatment Clinical Notes Section Notes 08/03/2023 Chronic tension-type headache, intractable (ICD-10 - G44.221) 08/03/2023 Hydrocephalus, unspecified (ICD-10 - G91.9) Plan Of Treatment Next Appt Details Follow Up: 4 Weeks, Reason: Evaluation and Management Progress Notes * Willem ROMANB:1965 (59 yo F)Acc No.[id number]:08/03/2023 Progress Notes Patient: Js BOOTH Provider: Sheri Naidu MD :1965 A ge:58 Y S ex:Female Date:08/03/2023 Address:[facility] [address] [facility] Pcp:Precious Barber, BATTERY WRECKER OPERATOR- Subjective: * Chief Complaints: * 1 . Headache follow-up. * HPI: * Introduction: HPI: Sue Roman, who presented for follow-up for headaches. * Initial History: INITIAL VISIT HISTORY: S he has a complex history. She is a 57 yo woman with h/o DM2, cervical DDD s/p cervical spinal fusion, and hydrocephalus s/p ALTERNATIVE EDUCATION TEACHER shunt. She reports that she was never prone to headaches earlier in her life. She reports that she developed problems in 2020. She started to have balance and gait difficulty, sometimes felt like her right leg was dragging, felt like she had mild memory and thinking difficulty, and she started to have headaches as well. Due to symptom persistence, she was eventually imaged and found to have hydrocephalus. 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 She was told that she could not remove the tumor and that she needed a ALTERNATIVE EDUCATION TEACHER shunt. She had a ALTERNATIVE EDUCATION TEACHER shunt placed with a programmable shunt done by Dr. Marge Baker at [facility]. She reports that after ALTERNATIVE EDUCATION TEACHER shunt placement that she had substantial improvement in all of her symptoms. She no longer had cognitive symptoms, her gait normalized, her headaches remitted. She was good for about 6 months. She then felt like she had recurrence of her symptoms. She started to gradually have headaches again. She also more abruptly developed the sense of unsteadiness and gait difficulty again, although not to the degree that it was before the ALTERNATIVE EDUCATION TEACHER shunt was placed. The headaches progressed and become daily. She was re- imaged and the ventricles had enlarged compared to the initial post-surgical imaging. The ALTERNATIVE EDUCATION TEACHER shunt setting was changed to drain more CSF, however, she had almost immediate symptoms of nausea and she felt that the change in shunt setting caused the symptom and so it was changed back to the prior setting. She saw another Neurosurgeon at [facility] who told her that this might be something you have to live with and apparently did not want to change the shunt setting. Since this time she reports that she has chronic daily headaches and still feels more unsteady in her gait than she used to, but her main complaint is headaches. She has a constant daily headache. The headache is not positional. The headache is bilateral/generalized, sometimes more on the right side but never unilateral. The pain is not pulsating or throbbing in quality, rather it is tightness or pressure in quality, she reports that it feels better to press in on her temples. She has at least moderate degree head pain everyday, but commonly it is actually severe in intensity. There is no associated nausea, no associated light sensitivity or sound sensitivity, no associated vertigo. By history, the headaches that she describes do not fulfill criteria for migraine. She has had a prior neck fusion and does endorse occasional neck discomfort and stiffness but it doesn't sound very significant and her headache are not primaily posterior. She is very frustrated by her ongoing headaches. She has been treated with duloxetine and topiramate and sumatriptan without any benefit. LAST VISIT HISTORY: S he still has chronic daily headaches, bilateral/generalized worse in bilateral frontotemporal, worse on right, and vertex, tension-type by history (no nausea, light sensitivity or nausea or dizziness, e.g. no migrainous features; also no positional features). She reports that working with NSGY on various shunt settings (from 0.5, to 1.0, to now 1.5) did not correlate with any change in headache pattern. She is now at 1.5 and NSGY did not want to change further. NSGY did not think chronic headaches were shunt/CSF pressure related. At last visit, we gave an Emgality injection 240 mg which had no effect. She previously failed amitriptyline, duloxetine, and topiramate as preventive medications. She has also tried Physical Therapy. She discussed a trial of botulinum toxin which I gave using a sample today. * Previous Impression & Plan: Notes P revious Diagnoses: 1 . Hydrocephalus, unspecified - G91.9 (Primary) 2 . Chronic tension-type headache, intractable - G44.221, Chronic daily headache P revious Recommendations: 1 . Follow with NSGY. 2 . Assess effect of botulinum toxin over the next 3 months. * Interval History: Notes P harmacologic Treatment: C urrent abortive treatment: N one P revious abortive treatment: S umatriptan C urrent preventive treatment: E mgality P revious preventive treatment: A mitripyline, Duloxetine, Topiramate (all ineffective) M edication overuse: Not present H eadache Frequency: I nitial/baseline headache/migraine days/month: 30/0 L ast visit headache/migraine days/month: 30/0 C urrent headache/migraine days/month: / I nterval History: L ast visit was on 0 05/25/23.. * ROS: C ONSTITUTIONAL: Positive for P [...] mellitus, RLS. * Surgical History: S /p ALTERNATIVE EDUCATION TEACHER shunt , S/p cervical spinal fusion . * Family History: She did not report a family history of migraine. * Social History: S mo Smart Form Are you a: c urrent [...] Allergies: N .K.D.A. Objective: * Vitals: Assessment: * Assessment: 1. H ydrocephalus, unspecified - G91.9 (Primary) 2 . C hronic tension-type headache, intractable - G44.221 S pecify :Chronic daily headache Plan: * Treatment: * Procedure Codes: 9 6160 PT-FOCUSED HLTH RISK ASSMT, G8427 DOC MEDS VERIFIED W/PT OR RE * Follow Up: 4 Weeks (Reason: Evaluation and Management) * Billing Information: * Visit Code: 96901 Office Visit, Est Pt., Level 4. Modifiers: 25 69371 Office Visit, Est Pt., Level 3. Modifiers: 25 * Procedure Codes: 82916 PT-FOCUSED HLTH RISK ASSMT. G8427 DOC MEDS VERIFIED W/PT OR RE. * Electronic signature of Dr. John Naidu MD on 11/22/2024 at 12:07 PM CDT Sign off status: Pending * Provider: Sheri Naidu MD Date: 0 08/03/2023 Generated for Emiliana shah/Tarah/Lisa on: 0 11/22/2024 12:07 PM CDT History and Physical Notes * HPI (History of Present Illness) Category Sub-Category Detail Notes Category Notes *Introduction HPI: jacqueline Calles presented for follow-up for headaches *Initial History INITIAL VISIT HISTORY: She has a complex history. She is a 57 yo woman with h/o DM2, cervical DDD s/p cervical spinal fusion, and hydrocephalus s/p ALTERNATIVE EDUCATION TEACHER shunt. She reports that she was never prone to headaches earlier in her life. She reports that she developed problems in 2020. She started to have balance and gait difficulty, sometimes felt like her right leg was dragging, felt like she had mild memory and thinking difficulty, and she started to have headaches as well. Due to symptom persistence, she was eventually imaged and found to have hydrocephalus. 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 She was told that she could not remove the tumor and that she needed a ALTERNATIVE EDUCATION TEACHER shunt. She had a ALTERNATIVE EDUCATION TEACHER shunt placed with a programmable shunt done by Dr. Marge Baker at [facility]. She reports that after ALTERNATIVE EDUCATION TEACHER shunt placement that she had substantial improvement in all of her symptoms. She no longer had cognitive symptoms, her gait normalized, her headaches remitted. She was good for about 6 months. She then felt like she had recurrence of her symptoms. She started to gradually have headaches again. She also more abruptly developed the sense of unsteadiness and gait difficulty again, although not to the degree that it was before the ALTERNATIVE EDUCATION TEACHER shunt was placed. The headaches progressed and become daily. She was re-imaged and the ventricles had enlarged compared to the initial post-surgical imaging. The ALTERNATIVE EDUCATION TEACHER shunt setting was changed to drain more CSF, however, she had almost immediate symptoms of nausea and she felt that the change in shunt setting caused the symptom and so it was changed back to the prior setting. She saw another Neurosurgeon at [facility] who told her that this might be something you have to live with and apparently did not want to change the shunt setting. Since this time she reports that she has chronic daily headaches and still feels more unsteady in her gait than she used to, but her main complaint is headaches. She has a constant daily headache. The headache is not positional. The headache is bilateral/generaliz ed, sometimes more on the right side but never unilateral. The pain is not pulsating or throbbing in quality, rather it is tightness or pressure in quality, she reports that it feels better to press in on her temples. She has at least moderate degree head pain everyday, but commonly it is actually severe in intensity. There is no associated nausea, no associated light sensitivity or sound sensitivity, no associated vertigo. By history, the headaches that she describes do not fulfill criteria for migraine. She has had a prior neck fusion and does endorse occasional neck discomfort and stiffness but it doesn't sound very significant and her headache are not primaily posterior. She is very frustrated by her ongoing headaches. She has been treated with duloxetine and topiramate and sumatriptan without any benefit. LAST VISIT HISTORY: She still has chronic daily headaches, bilateral/generaliz ed worse in bilateral frontotemporal, worse on right, and vertex, tension-type by history (no nausea, light sensitivity or nausea or dizziness, e.g. no migrainous features; also no positional features). She reports that working with NSGY on various shunt settings (from 0.5, to 1.0, to now 1.5) did not correlate with any change in headache pattern. She is now at 1.5 and NSGY did not want to change further. NSGY did not think chronic headaches were shunt/CSF pressure related. At last visit, we gave an Emgality injection 240 mg which had no effect. She previously failed amitriptyline, duloxetine, and topiramate as preventive medications. She has also tried Physical Therapy. She discussed a trial of botulinum toxin which I gave using a sample today *Previous Impression & Plan Notes Previous Diagnoses:1. Hydroc ephalus, unspecified - G91.9 (Primary)2. Chronic tension-type headache, intractable - G44.221, Chronic daily headachePrevious Recommendations:1. Follow with NSGY.2. Assess effect of botulinum toxin over the next 3 months *Interval History Notes Pharmacologic Treatment:Curr ent abortive treatment: NonePrevious abortive treatment: SumatriptanCurrent preventive treatment: EmgalityPrevious preventive treatment: Amitripyline, Duloxetine, Topiramate (all ineffective)Medication overuse: Not presentHeadache Frequency:Initial/baseline headache/migraine days/month: 30/0Last visit headache/migraine days/month: 30/0Current headache/migraine days/month: /Interval History:Last visit was on 05/25/23.
--- OUTSIDE RECORDS SUMMARY | 2023-08-04 12:30 | XMS_ITS ---
Author Organization [facility] [place] ([address]) Address [address] [place] [address] Care Team Providers Care Broadcast Operations Manager Name Role Phone Sunil BREENPrecious SERNA Primary Care Provider Rebecca vailaDr. John Jay [facility] [phone] REASON FOR VISIT Headache follow-up Encounters Encounter Location Date Provider Diagnosis [facility] [address] [place] [address] 08/04/2023 John Naidu Plan Of Treatment No Information Progress Notes * Willem ROMANB:1965 (59 yo F)Acc No.[id number]:08/04/2023 Progress Notes Patient: Js BOOTH Provider: Sheri Naidu MD :1965 A ge:58 Y S ex:Female Date:08/04/2023 Address:[address], [facility] Pcp:JAMSHID CedilloDAPHNE Subjective: * Chief Complaints: * 1 . Headache follow-up. * Medical History: Objective: * Vitals: Assessment: Plan: * Treatment: * Billing Information: * Visit Code: * Procedure Codes: * Electronic signature of Dr. John Naidu MD on 11/22/2024 at 12:07 PM CDT Sign off status: Pending * Provider: Sheri Naidu MD Date: 08/04/2023 Generated for Emiliana shah/Tarah/Cherrieitting on: 0 11/22/2024 12:07 PM CDT
--- OUTSIDE RECORDS SUMMARY | 2023-09-17 16:30 | XMS_ITS ---
Author Organization [facility] [employer] [place] ([address]) Address [address] [address] Care Team Providers Care Thimble Press Operator Name Role Phone Precious Desouza Primary Care Provider Rebecca shereeilaDr. John Jay Unavailable [phone] [employer], Provider Unavailable Unavailab le REASON FOR [...] Encounter Location Date Provider [place] [address] 09/17/2023 Provider [employer] Plan Of Treatment No Information Progress Notes * Willem ROMANB:1965 (59 yo F)Acc No.[id number]:09/17/2023 Patient: Js BOOTH Provider: Yvonne Chen :1965 A ge:58 Y S ex:Female Date:09/17/2023 [facility] [address] [facility] Pcp:JAMSHID Cedillo- Subjective: * Chief [...] Procedure Codes: * Electronic signature of Shonda ummchristen [facility]O-[facility] on 11/22/2024 at 12:07 PM CDT Sign off status: Pending * Provider: Yvonne Chen Date: 0 09/17/2023 Generated for Emiliana shah/Tarah/Lisa on: 11/22/2024 12:07 PM CDT
--- OUTSIDE RECORDS SUMMARY | 2024-11-22 12:07 | XMS_ITS | Patient Health Record ---
Author Organization [facility] [employer] ([address]) Address [address] [address] Care Team Providers Care Cook Italian Style Food Name Role Phone Precious Desouza Primary Care Provider [facility] [phone] Allergies No Known Allergies Reason For Referral No Information Medications Medication SIG (Take, Route, Frequency, Duration) Notes Start Date End Date Status metFORMIN HCl 500 MG 1 tab(s) orally 2 times a day; Duration: 30 day(s) Active DULoxetine HCl 40 MG 1 CAP(S) ORALLY ONCE A DAY *Please review and pick correct strength-formulation from inSellyspan options. If intended option is not shown, discontinue and re-order from Quick Search* Active CALCIUM 600+D 600 mg-5 mcg 1 tab(s) orally 3 times a day; Duration: 30 day(s) Active ZINC 140 mg (as elemental zinc 50 mg) 1 tab(s) orally once a day; Duration: 30 day(s) Active METFORMIN 500 mg 1 tab(s) orally 2 times a day; Duration: 30 day(s) Active Calcium 600 + D 600 MG-5 MCG 1 TAB(S) ORALLY 3 TIMES A DAY; Duration: 30 DAY(S) *Please review and pick correct strength-formulation from inSellyspan options. If intended option is not shown, discontinue and re-order from Quick Search* Active DULOXETINE 40 mg 1 cap(s) orally once a day Active Zinc 50 MG 1 tab(s) orally once a day; Duration: 30 day(s) Active Social History Tobacco Use: Social History Observation Description Date Details (start date - stop date) Current Smoker NA - NA Smoking Smart Form: Question Answer Notes Are you a: current smoker Problems Problem Type SNOMED Code ICD Code Onset Dates Problem Status W/U Status Risk Notes Problem Chronic migraine without aura, non-refractory (disorder) (062819769243177) Migraine without aura, not intractable, without status migrainosus (G43.009) Active confirmed Problem Migraine with aura (7661992) Migraine with aura, not intractable, without status migrainosus (G43.109) Active confirmed Problem Chronic migraine without aura, non-intractable (542677197708386) Chronic migraine without aura, not intractable, without status migrainosus (G43.709) Active confirmed Problem Chronic tension-type headache (885528030) Chronic tension-type headache, intractable (G44.221) Active confirmed Problem Hydrocephalus (529229401) Hydrocephalus, unspecified (G91.9) Active confirmed Plan Of Treatment No Information Insurance Providers Payer Name Payer Address Payer Phone Subscriber Number Group Number Insured Name Patient Relationship to Insured Coverage Start Date Coverage End Date [facility] [address] [place] [address] [id number] Js Roman Self - patient is the insured Medical (General) History Medical History History ICD Code Hydrocephalus Cervical DDD Type II diabetes mellitus RLS Surgical History Surgery Date(Month/Year) S/p DRUG ENFORCEMENT AGENT shunt S/p cervical spinal fusion
--- OUTSIDE RECORDS SUMMARY | 2024-11-22 12:08 | XMS_ITS | Clinical Summary ---
Author Organization [facility] Address [address] [place] [address] Care Team Providers Care Statistical Typist Name Role Phone Precious Barber NP Primary Care Provider + Sylvester Gusman MD Unavailable Allergies Active Allergy Reactions Criticality Noted Date Comments Miconazole Nitrate Swelling Medium 05/04/2011 Tioconazole Swelling Medium 04/20/2022 Medications cholecalcifero l (VITAMIN D-3) 25 mcg (1,000 unit) tablet cholecalciferol (vitamin D3) 25 mcg (1,000 unit) tablet 07/07/[address] (CYMBALTA) 30 mg capsule Take by mouth daily 04/13/19 23 Active glipiZIDE (GLUCOTROL) 5 mg tablet Take 5 mg by mouth 2 (two) times a day 03/31/20 22 Active metFORMIN XR (GLUCOPHAGE XR) 500 mg 24 hr tablet 03/01/20 22 Active oxybutynin XL (DITROPAN-XL) 5 mg 24 hr tablet 02/07/20 22 Active acyclovir (ZOVIRAZ) 5 % cream APPLY TO AFFECTED AREA 5 TIMES A DAY NEEDED 01/19/20 23 Active atorvastatin (LIPITOR) 40 mg tablet Take 1 tablet (40 mg total) by mouth nightly 01/31/20 23 Active calcium carbonate-gigi min D3 1500 mg (600 mg elemental) -200 units per tablet every 8 hours Active clobetasoL (TEMOVATE) 0.05 % ointment APPLY VAGINALLY ONCE DAILY AT BEDTIME 10/25/19 24 Active fluconazole (DIFLUCAN) 150 mg tablet TAKE 1 TABLET BY MOUTH A SINGLE DOSE 08/17/19 24 Active Januvia 25 mg tablet 08/09/19 24 Active zinc gluconate 50 mg tablet daily Active amitriptyline (ELAVIL) 25 mg tablet TAKE 1 TABLET BY MOUTH EVERY DAY AT NIGHT 30 tablet 11 05/07/19 25 Active Active Problems Problem Noted Date Diagnosed Date [...] Onset: 08/03/2012 Idiopathic normal pressure hydrocephalus (INPH) 06/01/2012 Overview (04/20/2022): Date Onset: 06/01/2012 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 05/04/2011 Encounters Date Type Department Care Team Description 09/04/2024 Telephone [facility] Medicine Neurosurgery [address] [facility] [address] [place] [address] Selin Miles NP from Last 3 Months Immunizations Immunization Administration Dates Next Due H1N1 Inj 07/15/2009 Influenza, Quadrivalent, Spl it, Preservative Free, Intramuscular 01/04/2020,01/27/2019 Influenza, Unspecified 01/27/2019,2017,02/14/2014,01/25 Pneumococcal Polysaccharide PPV23 09/27/2019 Tdap 02/05/2018 ZOSTER LIVE 11/24/2018 ZOSTER Recombinant 11/24/2018,06/19/2018 Surgical History Surgery Date Site/Laterality Comments OTHER SURGICAL HISTORY 10/22/2020 Shunt Medical History Medical History Date Comments Brain tumor (benign) Type 2 diabetes mellitus Family History Medical History Relation Name Comments [...] more drinks on one occasion? 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 Height 172.7 cm (5' 8) 05/17/2024 11:38 AM INSTALLER INTERIOR ASSEMBLIES Body Mass Index 18.7 05/17/2024 11:38 AM INSTALLER INTERIOR ASSEMBLIES Plan of Treatment Health Maintenance Due Date [...] Eye Exam 08/17/2023 08/16/2022 Influenza Vaccine (#1) 2024 0, 01/27/2019, 01/27/2019, Additional history exists DTaP/Tdap/Td Vaccine (2 - Td or Tdap) 02/06/2028 02/05/2018 Zoster Vaccine Completed 11/24/2018, 11/03, 06/19/2018 Insurance [employer] MEDICARE HMO [place] CHO[place]PO [place] BLUE ACCESS OOS [facility] MEDICARE ADVANTAGE Care Teams Statistical Typist Relationship Specialty Start Date End Date Precious Barber NP PCP - General Nurse Practitioner 03/10/22 Sylvester Gusman MD [address] [place] [address] [place] [address] Family Medicine 03/10/22
--- OUTSIDE RECORDS SUMMARY | 2024-11-22 12:08 | XMS_ITS | Encounter Summary ---
Author Organization [facility] Address [address] [place] [address] Phone Care Team Providers Care Position Classification Manager Name Role Phone Precious Barber NP Primary Care Provider + Sylvester Gusman MD Unavailable + [phone] Encounter Details Date Type Department Care Team (Late st Contact Info) Description 09/04/2024 Telephone [facility] Medicine Neurosurgery [address] [facility] Medical Office Building [address] [place] [address] Selin Miles NP [address] [place] [address] Social History Tobacco Use Types Packs/Day Years [...] on file 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 Thanks * Telephone Encounter - Karon Leung - 11/21/2024 9:46 AM CDT F/U - 2nd ATTEMPT and LAST CALL - NO ANSWER - LVM for Pt to call back. [email or web address] message sent. * Telephone Encounter - Karon Leung - 11/12/2024 4:09 PM CDT F/U - 1st ATTEMPT - NO ANSWER - LVM for Pt to call back to offer her to be seen by Crys MILES per note below. JESUS : 11/20/2024 - 3.30PM [facility] * Telephone Encounter - Selin Miles NP - 11/12/2024 3:55 PM CDT LVM for pt to try and discuss symptoms. I can see this at [facility] or next Tuesday at [facility]. Happy to work her in. * Telephone Encounter - Karon Leung - 11/06/2024 8:12 AM CDT Hi, Your next avail return slot not before 12/24/2024 @[facility]. OK to DB a return slot ? Thanks. * Telephone Encounter - Selin Miles NP - 11/05/2024 4:03 PM CDT I am happy to see her back or talk to her. I couldn't get through via phone after her head CT. * Telephone Encounter - Karon Leung - 11/02/2024 3:21 PM CDT Pt called. We check on new Pt insurance/In network. Hi, Pt thought she was supposed to have F/U on 11/19/2024 - Per Selin FRANKLINN - Pt to F/U w/NEUROLOGY-Headaches, phone number provided. Should I r/s 1Y F/U ? What s the plan of care for Pt. Thanks. (Verification ins. Number [id number]) * Telephone Encounter - Selin Miles NP - 09/04/2024 3:38 PM CDT Reviewed HCT, vents smaller. Strata set at 1.0. Attempted to call pt with results, has answering service & call wouldn't go through. Attempted to leave VM on husbands phone, no voicemail set up. Will send [employer] message. documented in this encounter Plan of Treatment Not on file documented as of this encounter Visit Diagnoses Not on filedocumented in this encounter Care Teams Position Classification Manager Relationship Specialty Start Date End Date Precious Barber NP PCP - General Nurse Practitioner 03/10/22 Sylvester Gsuman MD [address] [place] [address] [place] [address] Family Medicine 03/10/22 documented as of this encounter
[2024-11-22 12:16] LABS: Alanine Aminotransferase 32 U/L (6-35); Aspartate Amino Transferase 22 U/L (14-36)
== END 2024-11-22 11:30 | disposition home or self-care (01) ==
PROVIDERS: PCP Nurse Practitioner Family; Visit Provider Podiatrist Foot & Ankle Surgery
DX: B35.1 Tinea unguium (principal)
CPT/HCPCS: 36415; 84450; 84460

== ENCOUNTER 2024-12-13 17:38 | Emergency (ER) | payer MEDICARE, SELFPAY ==
--- OUTSIDE RECORDS SUMMARY | 2023-07-07 12:30 | XMS_ITS ---
Author Organization [facility] [employer] [place] ([address]) Address [address] [place] [address] Care Team Providers Care Multimedia Editor Name Role Phone Sunil [facility] Primary [facility] Provider Rebecca Dr. John Gupta [facility] [phone] Allergies No Known Allergies REASON FOR VISIT CANCEL Medications Medication SIG (Take, Route, Frequency, Duration) Notes Start Date End Date Status ZINC 140 mg (as elemental zinc 50 mg) 1 tab(s) orally once a day; Duration: 30 day(s) Active METFORMIN 500 mg 1 tab(s) orally 2 ti mes a day; Duration: 30 day(s) Active CALCIUM 600+D 600 mg-5 mcg 1 tab(s) oral ly 3 times a day; Duration: 30 day(s) Active DULOXETINE 40 mg 1 cap(s) orally once a day Active Social History Tobacco Use: Social History Observation Description Date Details (start date - stop date) Current Smoker NA - NA Smoking Smart Form: Question Answer Notes Are you a: current smoker Encounters Encounter Location Date Provider Diagnosis [facility] [address] [place] [address] 07/07/2023 John Naidu Plan Of Treatment No Information Progress Notes * Willem ROMANB:1965 (59 yo F)Acc No.[id number]:07/07/2023 Progress Notes Patient: Js BOOTH Provider: Sheri Naidu MD :1965 A ge:58 Y S ex:Female Date:07/07/2023 Address:[address], [facility] Pcp:Precious Barber [facility] Subjective: * Chief Complaints: * 1 . CANCEL. * ROS: C ONSTITUTIONAL: Positive for P atient denies fevers, chills, sweats, unintended weight loss, loss of appetite, or chronic fatigue. E NT: Positive P atient denies ear fullness or pain or sinus pain. R ESPIRATORY: Positive for P atient denies shortness of breath or wheezing. O PHTHALMOLOGY: Positive for R eviewed and except as mentioned above in the HPI is negative. E NDOCRINOLOGY: Positive for P atient denies heat intolerance, cold intolerance, polyuria, elevated blood sugar, chronic fatigue. C ARDIOLOGY: Positive for P atient denies dizziness, palpitations, or chest pain. G ASTROENTEROLOGY: Positive for P atient denies diarrhea, melena, bloody stools, or abdominal pain. U ROLOGY: Positive for P atient denies urinary incontinence or urinary dysfunction. D ERMATOLOGY: Positive for P atient denies rash or hives. ? N EUROLOGY: Positive for R eviewed and except as mentioned above in the HPI is negative. H EMATOLOGY/LYMPH: Positive for P atient denies history of excessive bruising or bleeding diasthesis. M USCULOSKELETAL: Positive for P atient denies extremity joint pain or swelling. P SYCHOLOGY: Positive for R eviewed and except as discussed above in the HPI is otherwise negative. * Medical History: H ydrocephalus, Cervical DDD, Type II diabetes mellitus, RLS. * Surgical History: S /p PROGRAM DIRECTOR/MUSIC DIRECTOR shunt , S/p cervical spinal fusion . * Family History: She did not report a family history of migraine. * Social History: S moking Smart Form Are you a: c urrent smoker * Medications: T aking ZINC 140 mg (as elemental zinc 50 mg) tablet 1 tab(s) orally once a day , Taking CALCIUM 600+D 600 mg-5 mcg tablet 1 tab(s) orally 3 times a day , Taking DULOXETINE 40 mg delayed release capsule 1 cap(s) orally once a day , Taking METFORMIN 500 mg tablet 1 tab(s) orally 2 times a day * Allergies: N .K.D.A. Objective: * Vitals: Assessment: Plan: * Treatment: * Billing Information: * Visit Code: * Procedure Codes: * Electronic signature of Dr. John Naidu MD on 12/13/2024 at 05:40 PM CDT Sign off status: Pending * Provider: Sheri Naidu MD Date: 0 07/07/2023 Generated for Emiliana shah/Tarah/Lisa on: 0 12/13/2024 05:40 PM CDT
--- OUTSIDE RECORDS SUMMARY | 2023-08-03 12:30 | XMS_ITS ---
Author Organization [employer] [place] ([address]) Address [address] [place] [address] Care Team Providers Care Distributor Publications Name Role Phone Sunil BREEN-Precious Primary Care Provider Rebecca Dr. John Gupta [facility] [phone] Allergies No Known Allergies REASON FOR VISIT [...] smoker Encounters Encounter Location Date Provider Diagnosis [facility] [address] [place] [address] 08/03/2023 John Naidu Chronic tension-type headache, intractable G44.221 and Hydrocephalus, unspecified G91.9 Assessments Encounter Date Diagnosis (ICD Code) Assessment Notes Treatment Notes Treatment Clinical Notes Section Notes 08/03/2023 Chronic tension-type headache, intractable (ICD-10 - G44.221) 08/03/2023 Hydrocephalus, unspecified (ICD-10 - G91.9) Plan Of Treatment Next Appt Details Follow Up: 4 Weeks, Reason: Evaluation and Management Progress Notes * Willem ROMANB:1965 (59 yo F)Acc No.[id number]:08/03/2023 Progress Notes Patient: Js BOOTH Provider: Sheri Naidu MD :1965 A ge:58 Y S ex:Female Date:08/03/2023 Address:[facility] [address] [facility] Pcp:Precious Barber, DISTRICT MANAGER PRIMARY CARE SALES- Subjective: * Chief Complaints: * 1 . Headache follow-up. * HPI: * Introduction: HPI: Sue Roman, who presented for follow-up for headaches. * Initial History: INITIAL VISIT HISTORY: S he has a complex history. She is a 57 yo woman with h/o DM2, cervical DDD s/p cervical spinal fusion, and hydrocephalus s/p EMPLOYMENT CASE MANAGER shunt. She reports that she was never [...] the tumor and that she needed a EMPLOYMENT CASE MANAGER shunt. She had a EMPLOYMENT CASE MANAGER shunt placed with a programmable shunt done by Dr. Marge Baker at [facility]. She reports that after EMPLOYMENT CASE MANAGER shunt placement that she had substantial improvement [...] the degree that it was before the EMPLOYMENT CASE MANAGER shunt was placed. The headaches progressed and become daily. She was re- imaged and the ventricles had enlarged compared to the initial post-surgical imaging. The EMPLOYMENT CASE MANAGER shunt setting was changed to drain more CSF, however, she had almost immediate symptoms of nausea and she felt that the change in shunt setting caused the symptom and so it was changed back to the prior setting. She saw another Neurosurgeon at [facility] who told her that this might be [...] mellitus, RLS. * Surgical History: S /p EMPLOYMENT CASE MANAGER shunt , S/p cervical spinal fusion . [...] Management) * Billing Information: * Visit Code: 04886 Office Visit, Est Pt., Level 4. Modifiers: 25 71990 Office Visit, Est Pt., Level 3. Modifiers: 25 * Procedure Codes: 71172 PT-FOCUSED HLTH RISK ASSMT. G8427 DOC MEDS VERIFIED W/PT OR RE. * Electronic signature of Dr. John Naidu MD on 12/13/2024 at 05:40 PM CDT Sign off status: Pending * Provider: Sheri Naidu MD Date: 0 08/03/2023 Generated for Emiliana shah/Tarah/Lisa on: 0 12/13/2024 05:40 PM CDT History and Physical Notes * HPI (History of Present Illness) Category Sub-Category Detail Notes Category Notes *Introduction HPI: jacqueline Calles presented for follow-up for headaches *Initial History INITIAL VISIT HISTORY: She has a complex history. She is a 57 yo woman with h/o DM2, cervical DDD s/p cervical spinal fusion, and hydrocephalus s/p EMPLOYMENT CASE MANAGER shunt. She reports that she was never [...] the tumor and that she needed a EMPLOYMENT CASE MANAGER shunt. She had a EMPLOYMENT CASE MANAGER shunt placed with a programmable shunt done by Dr. Marge Baker at [facility]. She reports that after EMPLOYMENT CASE MANAGER shunt placement that she had substantial improvement [...] the degree that it was before the EMPLOYMENT CASE MANAGER shunt was placed. The headaches progressed and become daily. She was re-imaged and the ventricles had enlarged compared to the initial post-surgical imaging. The EMPLOYMENT CASE MANAGER shunt setting was changed to drain more CSF, however, she had almost immediate symptoms of nausea and she felt that the change in shunt setting caused the symptom and so it was changed back to the prior setting. She saw another Neurosurgeon at [facility] who told her that this might be [...]
--- OUTSIDE RECORDS SUMMARY | 2023-08-04 12:30 | XMS_ITS ---
Author Organization [facility] [place] ([address]) Address [address] [place] [address] Care Team Providers Care Bridge Builder Name Role Phone Sunil BREENPrecious SERNA Primary Care Provider Rebecca vailaDr. John Jay [facility] [phone] REASON FOR VISIT Headache follow-up Encounters Encounter Location Date Provider Diagnosis [facility] [address] [place] [address] 08/04/2023 John Naidu Plan Of Treatment No Information Progress Notes * Willem ROMANB:1965 (59 yo F)Acc No.[id number]:08/04/2023 Progress Notes Patient: Js BOOTH Provider: Sheri Naidu MD :1965 A ge:58 Y S ex:Female Date:08/04/2023 Address:[address], [facility] Pcp:JAMSHID CedilloDAPHNE Subjective: * Chief Complaints: * 1 . Headache follow-up. * Medical History: Objective: * Vitals: Assessment: Plan: * Treatment: * Billing Information: * Visit Code: * Procedure Codes: * Electronic signature of Dr. John Naidu MD on 12/13/2024 at 05:40 PM CDT Sign off status: Pending * Provider: Sheri Naidu MD Date: 08/04/2023 Generated for Emiliana shah/Tarah/Cherrieitting on: 0 12/13/2024 05:40 PM CDT
--- OUTSIDE RECORDS SUMMARY | 2023-09-17 16:30 | XMS_ITS ---
Author Organization [facility] [employer] [place] ([address]) Address [address] [address] Care Team Providers Care Creel Selector Name Role Phone Precious Desouza Primary Care Provider Rebecca shereeilaDr. John Jay Unavailable [phone] [employer], Provider Unavailable Unavailab le REASON FOR VISIT Multum To Medispan Conversion Encounter Medications Medication SIG (Take, Route, Frequency, Duration) Notes Start Date End Date Status metFORMIN HCl 500 MG 1 tab(s) orally 2 times a day; Duration: 30 day(s) Active DULoxetine HCl 40 MG 1 CAP(S) ORALLY ONCE A DAY *Please review and pick correct strength-formulation from Medispan options. If intended option is not shown, discontinue and re-order from Quick Search* Active Calcium 600 + D 600 MG-5 MCG 1 TAB(S) ORALLY 3 TIMES A DAY; Duration: 30 DAY(S) *Please review and pick correct strength-formulation from Medispan options. If intended option is not shown, discontinue and re-order from Quick Search* Active Zinc 50 MG 1 tab(s) orally once a day; Duration: 30 day(s) Active Encounters Encounter Location Date Provider [place] [address] 09/17/2023 Provider [employer] Plan Of Treatment No Information Progress Notes * Willem ROMANB:1965 (59 yo F)Acc No.[id number]:09/17/2023 Patient: Js BOOTH Provider: Yvonne Chen :1965 A ge:58 Y S ex:Female Date:09/17/2023 [facility] Pcp:JAMSHID Cedillo- Subjective: * Chief Complaints: * 1 . Multum To Medispan Conversion Encounter. * Medical History: * Medications: T aking Zinc 50 MG Tablet 1 tab(s) orally once a day , Taking Calcium 600 + D 600 MG-5 MCG TABLET 1 TAB(S) ORALLY 3 TIMES A DAY , Notes to Pharmacist: *Please review and pick correct strength-formulation from Medispan options. If intended option is not shown, discontinue and re-order from Quick Search*, Taking DULoxetine HCl 40 MG DELAYED RELEASE CAPSULE 1 CAP(S) ORALLY ONCE A DAY , Notes to Pharmacist: *Please review and pick correct strength-formulation from Medispan options. If intended option is not shown, discontinue and re-order from Quick Search*, Taking metFORMIN HCl 500 MG Tablet 1 tab(s) orally 2 times a day Objective: * Vitals: Assessment: Plan: * Treatment: * Billing Information: * Visit Code: * Procedure Codes: * Electronic signature of Shonda salomonchristen DELG[facility]O-[facility] on 12/13/2024 at 05:40 PM CDT Sign off status: Pending * Provider: Yvonne Chen Date: 0 09/17/2023 Generated for Emiliana shah/Tarah/Lisa on: 12/13/2024 05:40 PM CDT
--- OUTSIDE RECORDS SUMMARY | 2024-12-13 17:41 | XMS_ITS | Clinical Summary ---
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 Height 172.7 cm (5' 8) 05/17/2024 11:38 AM 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 Body Mass Index 18.7 05/17/2024 11:38 AM 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 Plan of Treatment Health Maintenance Due Date [...] Exam 08/17/2023 08/16/2022 Influenza Vaccine (#1) 2024 , 01/27/2019, 01/27/2019, Additional history exists DTaP/Tdap/Td Vaccine (2 - Td or Tdap) 02/06/2028 02/05/2018 Zoster Vaccine Completed 11/24/2018, 11/03, 06/19/2018 [place] [address] [facility] MEDICARE HMO BL CHOICE [place]F [place]PO [place] BLUE ACC[place] OOS [facility] MEDICARE ADVANTAGE [facility] MEDIC[facility] Address: [address] [address] [place] [address] Care Teams Land Manager Relationship Specialty Start Date End Date Precious Barber NP PCP - General Nurse Practitioner 03/10/22 Sylvester Gusman MD [address] [place] [address] [place] [address] Family Medicine 03/10/22
--- NOTE | 2024-12-13 19:06 | ED.GENADULT ---
HPI - General Adult General Chief complaint: Wound/Laceration Stated complaint: laceration, left 2nd finger Time Seen by Provider: 12/13/24 18:46 History of Present Illness HPI narrative: 59-year-old female presenting with a finger laceration. She cut herself a razor at her house. She has a 1 cm laceration to her left index finger. Bleeding is controlled. She unknown tetanus is up-to-date. No functional deficits the finger. Related Data Home Medications ?Medication ?Instructions ?Recorded ?Confirmed ?Last Taken ?Type cholecalciferol (vitamin D3) 50 50 mcg PO DAILY 01/16/24 11/13/24 05/14/24 History mcg (2,000 unit) capsule Lactobacillus acidophilus and 1 cap PO DAILY 05/07/24 11/13/24 05/14/24 History rhamnosus 15 billion cell capsule (Florajen Women) wrungusd-azyrtcsq-mgfub acid 240 tablet PO 08/10/24 11/13/24 Unknown History mcg-vit K1 150 mcg-herb 357 tablet (Alive Women's 50 Plus Ultra Multivitamin) terbinafine HCl 250 mg tablet 250 mg PO DAILY 08/23/24 11/13/24 Unknown History Allergies Allergy/AdvReac Type Severity Reaction Status Date / Time hydrocodone AdvReac Mild Nausea and Verified 11/13/24 13:49 Vomiting 1. MONISTAT Allergy Mild Swelling Uncoded 11/13/24 13:49 PMFSH Past Medical History Medical History Tobacco dependence Restless legs Hyperlipidemia Vaginal discharge Screening for breast cancer Encounter for gynecological examination Headache HSV (herpes simplex virus) infection Overactive bladder Diabetes mellitus type 2 Anxiety Hypercholesteremia Vaginal delivery x1 Surgical History Surgical History History of brain shunt History of foot surgery right foot History of surgery of head 10/08/20, stent placed Previous section x1 H/O shoulder surgery 2018 H/O neck surgery 2010 History of cholecystectomy 2005 Family History Family History Father Diabetes mellitus Social History Social History (Updated 11/26/24 @ 14:28 by Reid Castrejon) Social History: 11/20/24 patient declined SDOH Smoking packs per day: 0.5 Smoking cigarettes per day: 10.0 Years smoked: 40 Smoking pack-years: 20.00 Smoking status: Former smoker Tobacco type: cigarettes Alcohol intake: never Alcohol use details: seldom Substance use: never Substance use type: does not use Do You Feel Safe in your Home?: Yes Lack of Transportation: No Lack of Food: Never True Current Housing: I Have Housing Concerned About Future Housing: No Difficulty Paying Gas/Electric Bills: No Difficulty Paying for Meds: No Currently Unemployed: No Education: Trade/Vocational Certificate Difficulty w/ Childcare or Family Care: No Living arrangements: with family Occupation/Education: other Gender identity (if verbalized by the patient): Female Spiritual care concerns: No Exam Narrative: APPEARANCE: No apparent distress. Head: atraumatic. EYES: EOMI, NOSE: Atraumatic NECK: Trachea midline RESPIRATORY: No increased rate of breathing CARDIOVASCULAR: RRR, ABDOMINAL: Non-distended MUSCULOSKELETAl: No obvious deformities NEURO: Alert. Moving 4/4 extremities SKIN:: 1 cm laceration over the left index finger. Deeper structures intact. Function of the finger intact. Cap refill less than 2. PSYCHIATRIC: Normal affect Procedures Laceration Laceration 1: Date: 12/13/24 Site: hand Side (If applicable): left Size (cm): 1 Description: linear Depth: simple, single layer Pre-repair: wound explored, irrigated and irrigated extensively ====== Skin Level ====== Skin layer closed with: dermabond ====== Subcutaneous Layer ====== ====== Muscle Layer ====== ====== Tendon Layer ====== Medical Decision Making MDM Narrative Medical decision making narrative: -Course: 9-year-old female presenting with a shallow finger laceration. Was repaired with Dermabond. Patient given tetanus booster. Discharged with return precautions. Discharge Plan Discharge Clinical Impression: Finger laceration Patient Disposition: Home Condition: Stable Instructions: Antibiotic Form, Laceration (ED) Additional Instructions: Please follow-up with your primary care physician in 3-5 days for wound check. The glue should fall off on its own after 5-7 days. Keep her finger in a splint for the 1st 48 hours. Return if you develop signs of infection like increased redness or pain. Patient Language: Tunisian Prescriptions: No Action terbinafine HCl 250 mg tablet 250 mg PO DAILY (DME) FreeStyle Catrachito 3 Plus Sensor Device See Rx Instructions .ROUTE .MEDSUPPLY Qty: 6 2RF Rx Instructions: Use to monitor glucose glucagon 3 mg/actuation spray,non-aerosol 3 mg intranasal ONCE PRN (Reason: hypoglycemia) Qty: 2 4RF Rx Instructions: as a single dose; may repeat once in 15 minutes if no response (DME) FreeStyle Catrachito 3 [place] Misc See Rx Instructions .Route Qty: 1 0RF Rx Instructions: As directed (DME) lancets [OneTouch Delica Plus Lancet] 33 gauge misc See Rx Instructions .ROUTE .MEDSUPPLY Qty: 100 0RF Rx Instructions: Check glcuose 3-4 times daily Alive Women's 50 Plus Ultra MV 240-150 mcg tablet PO Florajen Women 15 billion cell capsule 1 cap PO DAILY glipizide 5 mg tablet 5 mg PO BID Qty: 180 3RF cholecalciferol (vitamin D3) 50 mcg (2,000 unit) capsule 50 mcg PO DAILY oxybutynin chloride 5 mg tablet extended release 24hr See Rx Instructions .ROUTE .COMPLEX Qty: 90 1RF Dose Instruction: TAKE 1 TABLET (5 MG TOTAL) BY MOUTH DAILY. Rx Instructions: TAKE 1 TABLET (5 MG TOTAL) BY MOUTH DAILY. atorvastatin 40 mg tablet 40 mg PO DAILY Qty: 90 1RF omeprazole 40 mg capsule,delayed release(DR/EC) See Rx Instructions .ROUTE .COMPLEX Qty: 90 0RF Dose Instruction: TAKE 1 CAPSULE BY MOUTH EVERY DAY Rx Instructions: TAKE 1 CAPSULE BY MOUTH EVERY DAY duloxetine 60 mg capsule,delayed release(DR/EC) 60 mg PO DAILY Qty: 90 1RF acyclovir 5 % ointment 1 applic topical 6XD 7 Days Qty: 30 1RF lisinopril 2.5 mg tablet 2.5 mg PO DAILY Qty: 90 1RF clobetasol 0.05 % cream 1 applic topical BID Qty: 30 0RF (DME) blood-glucose meter [Accu-Chek Guide Glucose Meter] Misc See Rx Instructions .Route Qty: 1 0RF Rx Instructions: Check BS 3-4 times daily (DME) Accu-Chek Guide test strips Strip See Rx Instructions .Route Qty: 100 0RF Rx Instructions: Check BS 3-4 times daily metformin 500 mg tablet extended release 24 hr 1,000 mg PO BID Qty: 360 1RF fluconazole 150 mg tablet 150 mg PO Q72H Qty: 2 0RF Rx Instructions: as a single dose Follow-up/Referrals: Precious Barber APRN [Primary Care Provider, Family Practice]
[2024-12-13] MEDS: TETANUS,DIPHTHERIA,AC PERTUSSIS ADULT (0.5 ML) BOOSTRIX IM (19:27)
[2024-12-13 19:40] VITALS: BP 105/64; PULSE 58; RESP 16; TEMP 36.7; O2SAT 97
== END 2024-12-13 19:41 | disposition home or self-care (01) ==
PROVIDERS: Emergency Provider Emergency Medicine; PCP Nurse Practitioner Family
DX: S61.211A Laceration without foreign body of left index finger without damage to nail, initial encounter (principal); E78.5 Hyperlipidemia, unspecified; E11.9 Type 2 diabetes mellitus without complications; Z87.891 Personal history of nicotine dependence; Z23 Encounter for immunization; W27.8XXA Contact with other nonpowered hand tool, initial encounter
CPT/HCPCS: 12011; 90471; 90715; 99282